=== PATIENT | female | born 1965 | race African-American/Black ===

== ENCOUNTER → 2017-03-11 09:44 | Outpatient (CLI) | payer OTHER | END | disposition home or self-care (01) | LOC: D.RT 09:44 | DX: Z02.71 Encounter for disability determination (principal) ==

== ENCOUNTER 2017-05-07 22:09 | Emergency (ER) | payer OTHER | END 2017-05-08 00:11 | disposition home or self-care (01) | LOC: D.ER 22:09 | DX: J32.9 Chronic sinusitis, unspecified (principal); F17.200 Nicotine dependence, unspecified, uncomplicated ==

== ENCOUNTER 2017-05-14 10:47 | Emergency (ER) | payer MEDICAID | END 2017-05-14 13:53 | disposition home or self-care (01) | LOC: D.ER 10:47 | DX: J32.9 Chronic sinusitis, unspecified (principal); F17.200 Nicotine dependence, unspecified, uncomplicated ==

== ENCOUNTER 2017-06-02 19:22 | Emergency (ER) | payer MEDICAID ==
[2017-06-02 20:20] LABS: BASOPHILS 0.2 % (0-2); EOSINOPHILS 1.7 % (0-7); HEMATOCRIT 40.5 % (36.0-48.0); HEMOGLOBIN 13.5 g/dL (12-16); IMMATURE GRANULOCYTES 0.2 % (0-5); LYMPHOCYTES 29.3 % (15-50); MCH 28.7 pg (26.0-34.0); MCHC 33.3 g/dL (31.0-37.0); MEAN PLATELET VOLUME 11.6 fL (7.4-10.4); MONOCYTES 4.4 % (2-11); NEUTROPHILS 64.2 % (40-80); PLATELET COUNT 289 10x3/uL (130-400); RBC 4.71 10x6/uL (4.00-5.40); RDW 14.2 % (11.5-14.5); WBC 12.8 10x3/uL (4.8-10.8)
[2017-06-02 20:22] LABS: ALBUMIN 3.1 g/dL (3.4-5.0); ALKALINE PHOSPHATASE 63 U/L (46-116); ALT (SGPT) 20 U/L (10-68); BILIRUBIN - TOTAL 0.18 mg/dL (0.2-1.3); CALC OSMOLALITY 270 mosm/kg (275-300); CALCIUM 8.5 mg/dL (8.5-10.1); CARBON DIOXIDE 27.3 mmol/L (21.0-32.0); CHLORIDE - SERUM 102 mmol/L (98-107); CREATININE - SERUM 0.8 mg/dL (0.6-1.3); GLUCOSE 100 mg/dL (74-106); POTASSIUM - SERUM 4.1 mmol/L (3.5-5.1); PROTEIN - SERUM 7.7 g/dL (6.4-8.2); SODIUM 136 mmol/L (136-145); UREA NITROGEN 11 mg/dL (7-18); eGFR NON AFRICAN AMERICAN 80 mL/min (90-120)
[2017-06-02 20:25] LABS: AMYLASE - SERUM 71 U/L (25-115); C-REACTIVE PROTEIN 0.9 mg/dL (0.0-0.9); LIPASE 106 U/L (73-393)
[2017-06-02 20:34] LABS: TROPONIN-I < 0.017 ng/mL (0.000-0.060)
[2017-06-02 20:43] LABS: APPEARANCE CLEAR (CLEAR); BILIRUBIN NEGATIVE (NEGATIVE); COLOR YELLOW (YELLOW); GLUCOSE NEGATIVE (NEGATIVE); KETONE NEGATIVE (NEGATIVE); NITRITE NEGATIVE (NEGATIVE); PROTEIN NEGATIVE (NEGATIVE); RED CELLS - URINE 0-5 /hpf (0-5); SPECIFIC GRAVITY 1.015 (1.005-1.020); UROBILINOGEN NORMAL (NORMAL); WHITE CELLS - URINE 0-5 /hpf (0-5)
[2017-06-02 20:45] LABS: BACTERIA FEW /hpf (NONE SEEN); EPITHELIAL CELLS 0-5 /hpf (0-5)
== END 2017-06-02 23:59 | disposition home or self-care (01) ==
LOC: D.ER 19:22
PROVIDERS: Family Medicine
DX: R10.9 Unspecified abdominal pain (principal); S33.5XXA Sprain of ligaments of lumbar spine, initial encounter; X58.XXXA Exposure to other specified factors, initial encounter; Y93.89 Activity, other specified; Y92.029 Unspecified place in mobile home as the place of occurrence of the external cause

== ENCOUNTER 2017-06-09 20:12 | Emergency (ER) | payer MEDICAID ==
[2017-06-09 21:13] LABS: BASOPHILS 0.2 % (0-2); EOSINOPHILS 1.9 % (0-7); HEMATOCRIT 40.2 % (36.0-48.0); HEMOGLOBIN 13.1 g/dL (12-16); IMMATURE GRANULOCYTES 0.3 % (0-5); MCH 28.3 pg (26.0-34.0); MCHC 32.6 g/dL (31.0-37.0); MCV 86.8 fL (80.0-100.0); MEAN PLATELET VOLUME 11.2 fL (7.4-10.4); MONOCYTES 5.5 % (2-11); NEUTROPHILS 61.1 % (40-80); PLATELET COUNT 270 10x3/uL (130-400); RBC 4.63 10x6/uL (4.00-5.40); RDW 14.3 % (11.5-14.5); WBC 10.8 10x3/uL (4.8-10.8)
[2017-06-09 21:33] LABS: ALKALINE PHOSPHATASE 52 U/L (46-116); ALT (SGPT) 19 U/L (10-68); BILIRUBIN - TOTAL 0.27 mg/dL (0.2-1.3); CALC OSMOLALITY 277 mosm/kg (275-300); CALCIUM 8.8 mg/dL (8.5-10.1); CARBON DIOXIDE 31.5 mmol/L (21.0-32.0); CHLORIDE - SERUM 103 mmol/L (98-107); CREATININE - SERUM 0.8 mg/dL (0.6-1.3); GLUCOSE 83 mg/dL (74-106); POTASSIUM - SERUM 3.9 mmol/L (3.5-5.1); PROTEIN - SERUM 7.3 g/dL (6.4-8.2); SODIUM 140 mmol/L (136-145); UREA NITROGEN 12 mg/dL (7-18); eGFR NON AFRICAN AMERICAN 80 mL/min (90-120)
[2017-06-09 21:45] LABS: CKMB 0.5 U/L (0.0-3.6); CREATINE KINASE 65 UL (21-215); LIPASE 87 U/L (73-393)
[2017-06-09 21:48] LABS: TROPONIN-I < 0.017 ng/mL (0.000-0.060)
== END 2017-06-10 00:35 | disposition home or self-care (01) ==
LOC: D.ER 20:12
PROVIDERS: Emergency Medicine
DX: R07.9 Chest pain, unspecified (principal); F17.200 Nicotine dependence, unspecified, uncomplicated

== ENCOUNTER 2017-06-20 13:19 | Emergency (ER) | payer MEDICAID ==
[2017-06-20 14:15] LABS: BASOPHILS 0.3 % (0-2); EOSINOPHILS 1.5 % (0-7); HEMATOCRIT 42.8 % (36.0-48.0); HEMOGLOBIN 14.2 g/dL (12-16); IMMATURE GRANULOCYTES 0.3 % (0-5); MCH 28.3 pg (26.0-34.0); MCHC 33.2 g/dL (31.0-37.0); MCV 85.4 fL (80.0-100.0); MEAN PLATELET VOLUME 11.3 fL (7.4-10.4); MONOCYTES 5.7 % (2-11); NEUTROPHILS 66.2 % (40-80); PLATELET COUNT 264 10x3/uL (130-400); RBC 5.01 10x6/uL (4.00-5.40); WBC 14.1 10x3/uL (4.8-10.8)
[2017-06-20 14:29] LABS: ALBUMIN 3.3 g/dL (3.4-5.0); ALKALINE PHOSPHATASE 63 U/L (46-116); ALT (SGPT) 26 U/L (10-68); CALC OSMOLALITY 273 mosm/kg (275-300); CARBON DIOXIDE 30.4 mmol/L (21.0-32.0); CHLORIDE - SERUM 101 mmol/L (98-107); CREATININE - SERUM 0.8 mg/dL (0.6-1.3); GLUCOSE 99 mg/dL (74-106); POTASSIUM - SERUM 4.1 mmol/L (3.5-5.1); PROTEIN - SERUM 7.6 g/dL (6.4-8.2); SODIUM 138 mmol/L (136-145); UREA NITROGEN 8 mg/dL (7-18); eGFR NON AFRICAN AMERICAN 80 mL/min (90-120)
[2017-06-20 14:49] LABS: CKMB 0.6 U/L (0.0-3.6); CREATINE KINASE 79 UL (21-215); TROPONIN-I < 0.017 ng/mL (0.000-0.060)
== END 2017-06-20 16:10 | disposition home or self-care (01) ==
LOC: D.ER 13:19
PROVIDERS: Emergency Medicine
DX: R53.1 Weakness (principal); B34.9 Viral infection, unspecified; F17.200 Nicotine dependence, unspecified, uncomplicated

== ENCOUNTER 2017-06-21 18:35 | Emergency (ER) | payer MEDICAID ==
[2017-06-21 19:54] LABS: APPEARANCE CLEAR (CLEAR); BILIRUBIN NEGATIVE (NEGATIVE); COLOR YELLOW (YELLOW); GLUCOSE NEGATIVE (NEGATIVE); KETONE NEGATIVE (NEGATIVE); NITRITE NEGATIVE (NEGATIVE); PROTEIN NEGATIVE (NEGATIVE); SPECIFIC GRAVITY 1.025 (1.005-1.020); UROBILINOGEN NORMAL (NORMAL)
[2017-06-21 19:56] LABS: BACTERIA MODERATE /hpf (NONE SEEN); EPITHELIAL CELLS 0-5 /hpf (0-5); RED CELLS - URINE 0-5 /hpf (0-5); WHITE CELLS - URINE 0-5 /hpf (0-5)
[2017-06-21 19:59] LABS: UDS - AMPHET NEGATIVE QUAL (NEGATIVE); UDS - BARB NEGATIVE QUAL (NEGATIVE); UDS - BENZO NEGATIVE QUAL (NEGATIVE); UDS - COCAINE NEGATIVE QUAL (NEGATIVE); UDS - OPIATE NEGATIVE QUAL (NEGATIVE); UDS - PCP NEGATIVE QUAL (NEGATIVE); UDS - THC NEGATIVE QUAL (NEGATIVE)
== END 2017-06-21 21:41 | disposition home or self-care (01) ==
LOC: D.ER 18:35
PROVIDERS: Physician Assistant
DX: R51 Headache (principal); R00.2 Palpitations; M54.12 Radiculopathy, cervical region

== ENCOUNTER 2017-07-07 01:35 | Emergency (ER) | payer MEDICAID ==
[2017-07-07 02:49] LABS: BASOPHILS 0.3 % (0-2); EOSINOPHILS 1.8 % (0-7); HEMATOCRIT 39.8 % (36.0-48.0); HEMOGLOBIN 13.3 g/dL (12-16); IMMATURE GRANULOCYTES 0.2 % (0-5); LYMPHOCYTES 32.3 % (15-50); MCH 28.5 pg (26.0-34.0); MCHC 33.4 g/dL (31.0-37.0); MCV 85.4 fL (80.0-100.0); MEAN PLATELET VOLUME 11.4 fL (7.4-10.4); MONOCYTES 4.7 % (2-11); NEUTROPHILS 60.7 % (40-80); PLATELET COUNT 250 10x3/uL (130-400); RBC 4.66 10x6/uL (4.00-5.40); WBC 11.8 10x3/uL (4.8-10.8)
[2017-07-07 03:05] LABS: INR 0.94 (0.85-1.17); PROTIME 12.2 SECONDS (11.6-15.0)
[2017-07-07 03:07] LABS: D-DIMER-QUANTITATIVE 0.36 ug/mLFEU (0.20-0.54)
[2017-07-07 03:09] LABS: ALBUMIN 3.2 g/dL (3.4-5.0); ALKALINE PHOSPHATASE 54 U/L (46-116); ALT (SGPT) 21 U/L (10-68); BILIRUBIN - TOTAL 0.25 mg/dL (0.2-1.3); CALC OSMOLALITY 276 mosm/kg (275-300); CALCIUM 8.6 mg/dL (8.5-10.1); CARBON DIOXIDE 33.4 mmol/L (21.0-32.0); CHLORIDE - SERUM 101 mmol/L (98-107); CREATININE - SERUM 0.9 mg/dL (0.6-1.3); GLUCOSE 99 mg/dL (74-106); POTASSIUM - SERUM 3.6 mmol/L (3.5-5.1); PROTEIN - SERUM 7.2 g/dL (6.4-8.2); SODIUM 139 mmol/L (136-145); UREA NITROGEN 11 mg/dL (7-18); eGFR NON AFRICAN AMERICAN 70 mL/min (90-120)
[2017-07-07 03:13] LABS: APPEARANCE CLEAR (CLEAR); BILIRUBIN NEGATIVE (NEGATIVE); COLOR YELLOW (YELLOW); GLUCOSE NEGATIVE (NEGATIVE); KETONE NEGATIVE (NEGATIVE); NITRITE NEGATIVE (NEGATIVE); PROTEIN NEGATIVE (NEGATIVE); UROBILINOGEN NORMAL (NORMAL)
[2017-07-07 03:14] LABS: BACTERIA FEW /hpf (NONE SEEN); EPITHELIAL CELLS 0-5 /hpf (0-5); MUCUS <1+ /lpf (NONE SEEN); WHITE CELLS - URINE 0-5 /hpf (0-5)
[2017-07-07 03:18] LABS: CKMB 0.4 U/L (0.0-3.6); CREATINE KINASE 81 UL (21-215)
[2017-07-07 03:20] LABS: TROPONIN-I < 0.017 ng/mL (0.000-0.060)
== END 2017-07-07 07:27 | disposition home or self-care (01) ==
LOC: D.ER 01:35
PROVIDERS: Family Medicine
DX: M94.0 Chondrocostal junction syndrome [Tietze] (principal)

== ENCOUNTER 2017-07-19 22:02 | Emergency (ER) | payer MEDICAID ==
[2017-07-19 23:03] LABS: APPEARANCE CLEAR (CLEAR); BILIRUBIN NEGATIVE (NEGATIVE); COLOR YELLOW (YELLOW); GLUCOSE NEGATIVE (NEGATIVE); KETONE NEGATIVE (NEGATIVE); NITRITE NEGATIVE (NEGATIVE); PROTEIN NEGATIVE (NEGATIVE); SPECIFIC GRAVITY 1.015 (1.005-1.020); UROBILINOGEN NORMAL (NORMAL)
[2017-07-19 23:05] LABS: BACTERIA MODERATE /hpf (NONE SEEN); EPITHELIAL CELLS 0-5 /hpf (0-5); RED CELLS - URINE 0-5 /hpf (0-5); WHITE CELLS - URINE 0-5 /hpf (0-5)
== END 2017-07-19 23:44 | disposition home or self-care (01) ==
LOC: D.ER 22:02
PROVIDERS: Physician Assistant Medical
DX: J01.90 Acute sinusitis, unspecified (principal); B34.9 Viral infection, unspecified

== ENCOUNTER 2017-08-04 22:09 | Emergency (ER) | payer MEDICAID ==
[2017-08-04 22:59] LABS: BASOPHILS 0.2 % (0-2); EOSINOPHILS 1.8 % (0-7); HEMATOCRIT 37.8 % (36.0-48.0); HEMOGLOBIN 12.9 g/dL (12-16); IMMATURE GRANULOCYTES 0.2 % (0-5); LYMPHOCYTES 30.3 % (15-50); MCH 28.9 pg (26.0-34.0); MCHC 34.1 g/dL (31.0-37.0); MCV 84.8 fL (80.0-100.0); MEAN PLATELET VOLUME 11.2 fL (7.4-10.4); MONOCYTES 4.6 % (2-11); NEUTROPHILS 62.9 % (40-80); PLATELET COUNT 244 10x3/uL (130-400); RBC 4.46 10x6/uL (4.00-5.40); RDW 14.2 % (11.5-14.5); WBC 11.8 10x3/uL (4.8-10.8)
[2017-08-04 23:15] LABS: ALBUMIN 3.3 g/dL (3.4-5.0); ALKALINE PHOSPHATASE 52 U/L (46-116); ALT (SGPT) 21 U/L (10-68); BILIRUBIN - TOTAL 0.19 mg/dL (0.2-1.3); CALC OSMOLALITY 279 mosm/kg (275-300); CALCIUM 9.1 mg/dL (8.5-10.1); CARBON DIOXIDE 26.1 mmol/L (21.0-32.0); CHLORIDE - SERUM 105 mmol/L (98-107); CREATININE - SERUM 0.7 mg/dL (0.6-1.3); GLUCOSE 114 mg/dL (74-106); POTASSIUM - SERUM 3.8 mmol/L (3.5-5.1); SODIUM 140 mmol/L (136-145); UREA NITROGEN 13 mg/dL (7-18); eGFR NON AFRICAN AMERICAN > 90 mL/min (90-120)
[2017-08-04 23:19] LABS: APPEARANCE HAZY (CLEAR); BILIRUBIN NEGATIVE (NEGATIVE); COLOR YELLOW (YELLOW); GLUCOSE NEGATIVE (NEGATIVE); KETONE NEGATIVE (NEGATIVE); NITRITE NEGATIVE (NEGATIVE); PROTEIN NEGATIVE (NEGATIVE); SPECIFIC GRAVITY 1.015 (1.005-1.020); UROBILINOGEN NORMAL (NORMAL)
[2017-08-04 23:22] LABS: BACTERIA FEW /hpf (NONE SEEN); EPITHELIAL CELLS 0-5 /hpf (0-5); RED CELLS - URINE 0-5 /hpf (0-5); WHITE CELLS - URINE 0-5 /hpf (0-5)
[2017-08-04 23:25] LABS: AMYLASE - SERUM 70 U/L (25-115); CKMB 0.4 U/L (0.0-3.6); CREATINE KINASE 65 UL (21-215); LIPASE 109 U/L (73-393)
== END 2017-08-05 01:38 | disposition home or self-care (01) ==
LOC: D.ER 22:09
PROVIDERS: Family Medicine
DX: R10.32 Left lower quadrant pain (principal); N83.202 Unspecified ovarian cyst, left side; F17.200 Nicotine dependence, unspecified, uncomplicated

== ENCOUNTER 2017-08-22 22:47 | Emergency (ER) | payer MEDICAID ==
[2017-08-22 23:14] LABS: BASOPHILS 0.2 % (0-2); HEMATOCRIT 40.5 % (36.0-48.0); HEMOGLOBIN 13.4 g/dL (12-16); IMMATURE GRANULOCYTES 0.3 % (0-5); LYMPHOCYTES 29.2 % (15-50); MCH 28.3 pg (26.0-34.0); MCHC 33.1 g/dL (31.0-37.0); MCV 85.6 fL (80.0-100.0); MEAN PLATELET VOLUME 11.2 fL (7.4-10.4); MONOCYTES 6.1 % (2-11); NEUTROPHILS 62.2 % (40-80); PLATELET COUNT 232 10x3/uL (130-400); RBC 4.73 10x6/uL (4.00-5.40); RDW 13.9 % (11.5-14.5); WBC 14.2 10x3/uL (4.8-10.8)
[2017-08-22 23:29] LABS: ALBUMIN 3.2 g/dL (3.4-5.0); ALKALINE PHOSPHATASE 65 U/L (46-116); ALT (SGPT) 21 U/L (10-68); BILIRUBIN - TOTAL 0.14 mg/dL (0.2-1.3); CALC OSMOLALITY 278 mosm/kg (275-300); CALCIUM 8.3 mg/dL (8.5-10.1); CHLORIDE - SERUM 101 mmol/L (98-107); GLUCOSE 140 mg/dL (74-106); POTASSIUM - SERUM 3.6 mmol/L (3.5-5.1); PROTEIN - SERUM 7.3 g/dL (6.4-8.2); SODIUM 138 mmol/L (136-145); UREA NITROGEN 15 mg/dL (7-18); eGFR NON AFRICAN AMERICAN 62 mL/min (90-120)
[2017-08-22 23:34] LABS: APPEARANCE HAZY (CLEAR); BILIRUBIN NEGATIVE (NEGATIVE); COLOR YELLOW (YELLOW); EPITHELIAL CELLS 0-5 /hpf (0-5); GLUCOSE NEGATIVE (NEGATIVE); KETONE NEGATIVE (NEGATIVE); NITRITE NEGATIVE (NEGATIVE); PROTEIN NEGATIVE (NEGATIVE); SPECIFIC GRAVITY 1.025 (1.005-1.020); UROBILINOGEN NORMAL (NORMAL); WHITE CELLS - URINE 0-5 /hpf (0-5)
[2017-08-22 23:36] LABS: CREATINE KINASE 67 UL (21-215); PRO BNP 97 pg/mL (0-125); TROPONIN-I < 0.017 ng/mL (0.000-0.060)
== END 2017-08-23 00:40 | disposition home or self-care (01) ==
LOC: D.ER 22:47
PROVIDERS: Family Medicine; Nurse Practitioner Family
DX: N39.0 Urinary tract infection, site not specified (principal); B34.9 Viral infection, unspecified; J11.1 Influenza due to unidentified influenza virus with other respiratory manifestations; R05 Cough

== ENCOUNTER 2017-09-03 13:08 | Emergency (ER) | payer MEDICAID ==
[2017-09-03 14:51] LABS: APPEARANCE CLEAR (CLEAR); BILIRUBIN NEGATIVE (NEGATIVE); COLOR YELLOW (YELLOW); GLUCOSE NEGATIVE (NEGATIVE); KETONE NEGATIVE (NEGATIVE); NITRITE NEGATIVE (NEGATIVE); PROTEIN NEGATIVE (NEGATIVE); SPECIFIC GRAVITY 1.015 (1.005-1.020); UROBILINOGEN NORMAL (NORMAL)
[2017-09-03 14:52] LABS: RED CELLS - URINE 0-5 /hpf (0-5); WHITE CELLS - URINE 0-5 /hpf (0-5)
[2017-12-07 22:53] VITALS: BMI 29.6
== END 2017-09-03 17:15 | disposition home or self-care (01) ==
LOC: D.ER 13:08
PROVIDERS: Nurse Practitioner Family
DX: J32.9 Chronic sinusitis, unspecified (principal); N39.0 Urinary tract infection, site not specified; M79.642 Pain in left hand; M79.641 Pain in right hand; M79.1 Myalgia; R51 Headache; R53.83 Other fatigue; R05 Cough

== ENCOUNTER 2017-09-05 18:26 | Observation (INO) | payer MEDICAID ==
[~2017-09-05] VITALS: Ht 162.6 cm; Wt 84.2 kg
[2017-09-05 19:17] LABS: BASOPHILS 0.2 % (0-2); EOSINOPHILS 1.8 % (0-7); HEMATOCRIT 39.5 % (36.0-48.0); IMMATURE GRANULOCYTES 0.2 % (0-5); LYMPHOCYTES 30.1 % (15-50); MCH 28.4 pg (26.0-34.0); MCHC 32.9 g/dL (31.0-37.0); MCV 86.4 fL (80.0-100.0); MEAN PLATELET VOLUME 11.1 fL (7.4-10.4); MONOCYTES 5.2 % (2-11); NEUTROPHILS 62.5 % (40-80); PLATELET COUNT 264 10x3/uL (130-400); RBC 4.57 10x6/uL (4.00-5.40); RDW 13.6 % (11.5-14.5); WBC 10.1 10x3/uL (4.8-10.8)
[2017-09-05 19:43] LABS: ALBUMIN 3.2 g/dL (3.4-5.0); ALKALINE PHOSPHATASE 51 U/L (46-116); ALT (SGPT) 19 U/L (10-68); BILIRUBIN - TOTAL 0.57 mg/dL (0.2-1.3); CALC OSMOLALITY 274 mosm/kg (275-300); CALCIUM 8.5 mg/dL (8.5-10.1); CARBON DIOXIDE 28.2 mmol/L (21.0-32.0); CHLORIDE - SERUM 102 mmol/L (98-107); CREATININE - SERUM 0.9 mg/dL (0.6-1.3); GLUCOSE 97 mg/dL (74-106); POTASSIUM - SERUM 3.3 mmol/L (3.5-5.1); PROTEIN - SERUM 7.4 g/dL (6.4-8.2); SODIUM 138 mmol/L (136-145); UREA NITROGEN 11 mg/dL (7-18); eGFR NON AFRICAN AMERICAN 70 mL/min (90-120)
[2017-09-05 19:55] LABS: CKMB 0.5 U/L (0.0-3.6); CREATINE KINASE 91 UL (21-215)
[2017-09-05 19:56] LABS: TROPONIN-I < 0.017 ng/mL (0.000-0.060)
[2017-09-05 20:42] LABS: UDS - AMPHET NEGATIVE QUAL (NEGATIVE); UDS - BARB NEGATIVE QUAL (NEGATIVE); UDS - BENZO NEGATIVE QUAL (NEGATIVE); UDS - COCAINE NEGATIVE QUAL (NEGATIVE); UDS - OPIATE POSITIVE QUAL (NEGATIVE); UDS - PCP NEGATIVE QUAL (NEGATIVE); UDS - THC NEGATIVE QUAL (NEGATIVE)
[2017-09-05 20:52] LABS: APPEARANCE HAZY (CLEAR); BACTERIA FEW /hpf (NONE SEEN); BILIRUBIN NEGATIVE (NEGATIVE); COLOR YELLOW (YELLOW); EPITHELIAL CELLS 0-5 /hpf (0-5); GLUCOSE NEGATIVE (NEGATIVE); KETONE SMALL mg/dL (NEGATIVE); NITRITE NEGATIVE (NEGATIVE); PROTEIN TRACE mg/dL (NEGATIVE); RED CELLS - URINE 0-5 /hpf (0-5); UROBILINOGEN NORMAL (NORMAL)
[2017-09-06] MEDS ORDERED: ATIVAN1 MG PO (01:59)
[2017-09-06] MEDS ORDERED: CLARITIN 10 MG10 MG PO (02:02)
[2017-09-06] MEDS ORDERED: ZANTAC150 MG PO (02:02)
[2017-09-06] MEDS ORDERED: MEDROL DOSE PACK4 MG PO (02:07)
[2017-09-06] MEDS ORDERED: PROAIR HFA8.5 GM INH (02:11)
[2017-09-06] MEDS ORDERED: ALBUTEROL2.5 MG/3 M INH (02:12)
[2017-09-06] MEDS ORDERED: IBUPROFEN400 MG PO (02:17)
[2017-09-06 03:31] VITALS: BP 138/87; BMI 31.9
[2017-09-06 06:03] LABS: BASOPHILS 0.2 % (0-2); EOSINOPHILS 2.3 % (0-7); HEMATOCRIT 36.7 % (36.0-48.0); IMMATURE GRANULOCYTES 0.1 % (0-5); LYMPHOCYTES 31.1 % (15-50); MCHC 32.7 g/dL (31.0-37.0); MCV 85.5 fL (80.0-100.0); MEAN PLATELET VOLUME 11.4 fL (7.4-10.4); MONOCYTES 7.1 % (2-11); NEUTROPHILS 59.2 % (40-80); PLATELET COUNT 231 10x3/uL (130-400); RBC 4.29 10x6/uL (4.00-5.40); RDW 13.6 % (11.5-14.5); WBC 9.6 10x3/uL (4.8-10.8)
[2017-09-06 06:09] VITALS: BP 138/87
[2017-09-06 06:14] LABS: INR 1.02 (0.85-1.17)
[2017-09-06 06:18] LABS: CALC OSMOLALITY 272 mosm/kg (275-300); CALCIUM 8.1 mg/dL (8.5-10.1); CARBON DIOXIDE 25.4 mmol/L (21.0-32.0); CHLORIDE - SERUM 106 mmol/L (98-107); CREATININE - SERUM 0.8 mg/dL (0.6-1.3); GLUCOSE 101 mg/dL (74-106); POTASSIUM - SERUM 3.7 mmol/L (3.5-5.1); SODIUM 137 mmol/L (136-145); UREA NITROGEN 10 mg/dL (7-18); eGFR NON AFRICAN AMERICAN 80 mL/min (90-120)
[2017-09-06 08:26] VITALS: BP 118/60
[2017-09-06 12:01] LABS: THYROID STIMULATING HORMONE 0.86 uIU/mL (0.36-3.74)
[2017-09-06 13:10] LABS: CKMB 0.6 U/L (0.0-3.6); CREATINE KINASE 86 UL (21-215); TROPONIN-I < 0.017 ng/mL (0.000-0.060)
[2017-09-06 13:42] VITALS: BP 129/92
[2017-09-06 13:43] VITALS: Ht 162.6 cm; Wt 84.2 kg
[2017-09-06 18:55] LABS: CKMB 0.6 U/L (0.0-3.6); CREATINE KINASE 87 UL (21-215)
[2017-09-06 18:56] LABS: TROPONIN-I < 0.017 ng/mL (0.000-0.060)
[2017-09-06 23:40] VITALS: BP 150/87
[2017-09-07 00:39] LABS: CKMB 1.1 U/L (0.0-3.6); CREATINE KINASE 108 UL (21-215)
[2017-09-07 00:40] LABS: TROPONIN-I < 0.017 ng/mL (0.000-0.060)
[2017-09-07 05:23] LABS: BASOPHILS 0.1 % (0-2); EOSINOPHILS 0 % (0-7); HEMATOCRIT 36.2 % (36.0-48.0); IMMATURE GRANULOCYTES 0.2 % (0-5); LYMPHOCYTES 13.4 % (15-50); MCH 28.2 pg (26.0-34.0); MCHC 33.1 g/dL (31.0-37.0); MCV 85.2 fL (80.0-100.0); MEAN PLATELET VOLUME 10.8 fL (7.4-10.4); MONOCYTES 2.6 % (2-11); NEUTROPHILS 83.7 % (40-80); PLATELET COUNT 243 10x3/uL (130-400); RBC 4.25 10x6/uL (4.00-5.40); RDW 13.7 % (11.5-14.5); WBC 10.9 10x3/uL (4.8-10.8)
[2017-09-07 05:46] LABS: ALBUMIN 2.7 g/dL (3.4-5.0); ALKALINE PHOSPHATASE 40 U/L (46-116); ALT (SGPT) 17 U/L (10-68); CALC OSMOLALITY 276 mosm/kg (275-300); CALCIUM 7.9 mg/dL (8.5-10.1); CHLORIDE - SERUM 105 mmol/L (98-107); CREATININE - SERUM 0.7 mg/dL (0.6-1.3); GLUCOSE 115 mg/dL (74-106); POTASSIUM - SERUM 4.2 mmol/L (3.5-5.1); PROTEIN - SERUM 6.7 g/dL (6.4-8.2); SODIUM 139 mmol/L (136-145); UREA NITROGEN 8 mg/dL (7-18); eGFR NON AFRICAN AMERICAN > 90 mL/min (90-120)
[2017-09-07 06:13] VITALS: BP 135/86
[2017-09-07 23:07] VITALS: BP 184/80
[2017-09-08 05:23] VITALS: BP 174/84
[2017-09-08 05:41] LABS: BASOPHILS 0.3 % (0-2); EOSINOPHILS 0.8 % (0-7); HEMATOCRIT 36.8 % (36.0-48.0); IMMATURE GRANULOCYTES 0.2 % (0-5); LYMPHOCYTES 35.9 % (15-50); MCH 28.1 pg (26.0-34.0); MCHC 32.6 g/dL (31.0-37.0); MCV 86.2 fL (80.0-100.0); MONOCYTES 5.6 % (2-11); NEUTROPHILS 57.2 % (40-80); PLATELET COUNT 258 10x3/uL (130-400); RBC 4.27 10x6/uL (4.00-5.40); RDW 13.9 % (11.5-14.5); WBC 10.6 10x3/uL (4.8-10.8)
[2017-09-08 06:02] LABS: ALBUMIN 2.7 g/dL (3.4-5.0); ALKALINE PHOSPHATASE 42 U/L (46-116); ALT (SGPT) 17 U/L (10-68); BILIRUBIN - TOTAL 0.48 mg/dL (0.2-1.3); CALC OSMOLALITY 280 mosm/kg (275-300); CALCIUM 8.3 mg/dL (8.5-10.1); CARBON DIOXIDE 25.2 mmol/L (21.0-32.0); CHLORIDE - SERUM 107 mmol/L (98-107); CREATININE - SERUM 0.8 mg/dL (0.6-1.3); GLUCOSE 110 mg/dL (74-106); POTASSIUM - SERUM 3.6 mmol/L (3.5-5.1); PROTEIN - SERUM 6.4 g/dL (6.4-8.2); SODIUM 141 mmol/L (136-145); UREA NITROGEN 10 mg/dL (7-18); eGFR NON AFRICAN AMERICAN 80 mL/min (90-120)
[2017-09-08 08:05] VITALS: BP 145/87
[2017-09-08] MEDS ORDERED: FLUTICASONE PRO16 GM NASAL (12:24)
[2017-09-08] MEDS ORDERED: PROTONIX40 MG PO (12:26)
[2017-09-08] MEDS ORDERED: NYSTATIN ORAL SU5 ML PO (12:27)
[2017-09-08] MEDS ORDERED: LEVAQUIN750 MG PO (12:28)
[2017-09-08 12:35] VITALS: BP 149/86
== END 2017-09-08 14:22 | disposition home or self-care (01) ==
LOC: OBSVTIME → D.ER 18:26 → D.MS 23:54 → OBSVTIME 23:54 → D.EDHOLD 23:54 → D.ER 23:54 → D.MS 09-08 14:22
PROVIDERS: Family Medicine; Internal Medicine Gastroenterology
DX: R13.14 Dysphagia, pharyngoesophageal phase (principal); R63.4 Abnormal weight loss; K21.9 Gastro-esophageal reflux disease without esophagitis; F41.9 Anxiety disorder, unspecified; G47.33 Obstructive sleep apnea (adult) (pediatric); K29.70 Gastritis, unspecified, without bleeding

== ENCOUNTER 2017-09-08 20:17 | Emergency (ER) | payer MEDICAID ==
[2017-09-06 13:43] VITALS: BMI 31.8
[~2017-09-08 20:17] MED LIST: ALBUTEROL2.5 MG/3 M INH; ATIVAN1 MG PO; CLARITIN 10 MG10 MG PO; FLUTICASONE PRO16 GM NASAL; IBUPROFEN400 MG PO; LEVAQUIN750 MG PO; MEDROL DOSE PACK4 MG PO; NYSTATIN ORAL SU5 ML PO; PROAIR HFA8.5 GM INH; PROTONIX40 MG PO; ZANTAC150 MG PO
== END 2017-09-08 21:24 | disposition home or self-care (01) ==
LOC: D.ER 20:17
DX: J01.90 Acute sinusitis, unspecified (principal); J06.9 Acute upper respiratory infection, unspecified; F17.200 Nicotine dependence, unspecified, uncomplicated

== ENCOUNTER 2017-09-09 17:44 | Emergency (ER) | payer MEDICAID ==
[2017-09-06 13:43] VITALS: BMI 31.8
== END 2017-09-09 21:12 | disposition home or self-care (01) ==
LOC: D.ER 17:44
DX: R13.10 Dysphagia, unspecified (principal)

== ENCOUNTER 2017-09-17 17:38 | Emergency (ER) | payer MEDICAID ==
[2017-09-06 13:43] VITALS: BMI 31.8
[2017-09-17 21:09] LABS: APPEARANCE CLEAR (CLEAR); BILIRUBIN NEGATIVE (NEGATIVE); COLOR YELLOW (YELLOW); GLUCOSE NEGATIVE (NEGATIVE); KETONE SMALL mg/dL (NEGATIVE); NITRITE NEGATIVE (NEGATIVE); PROTEIN NEGATIVE (NEGATIVE); UROBILINOGEN NORMAL (NORMAL)
[2017-09-17 21:10] LABS: BACTERIA FEW /hpf (NONE SEEN); RED CELLS - URINE OCC /hpf (0-5); WHITE CELLS - URINE OCC /hpf (0-5)
[2017-09-17 21:33] LABS: BASOPHILS 0.4 % (0-2); EOSINOPHILS 1.4 % (0-7); HEMATOCRIT 38.3 % (36.0-48.0); HEMOGLOBIN 12.9 g/dL (12-16); IMMATURE GRANULOCYTES 0.1 % (0-5); LYMPHOCYTES 29.7 % (15-50); MCH 28.4 pg (26.0-34.0); MCHC 33.7 g/dL (31.0-37.0); MCV 84.4 fL (80.0-100.0); MEAN PLATELET VOLUME 11.6 fL (7.4-10.4); MONOCYTES 4.3 % (2-11); NEUTROPHILS 64.1 % (40-80); PLATELET COUNT 246 10x3/uL (130-400); RBC 4.54 10x6/uL (4.00-5.40); RDW 13.5 % (11.5-14.5); WBC 10.5 10x3/uL (4.8-10.8)
[2017-09-17 21:49] LABS: ALBUMIN 3.1 g/dL (3.4-5.0); ALKALINE PHOSPHATASE 51 U/L (46-116); ALT (SGPT) 18 U/L (10-68); BILIRUBIN - TOTAL 0.58 mg/dL (0.2-1.3); CALC OSMOLALITY 273 mosm/kg (275-300); CALCIUM 8.8 mg/dL (8.5-10.1); CARBON DIOXIDE 29.4 mmol/L (21.0-32.0); CHLORIDE - SERUM 103 mmol/L (98-107); CREATININE - SERUM 0.7 mg/dL (0.6-1.3); GLUCOSE 94 mg/dL (74-106); POTASSIUM - SERUM 3.4 mmol/L (3.5-5.1); SODIUM 138 mmol/L (136-145); UREA NITROGEN 7 mg/dL (7-18); eGFR NON AFRICAN AMERICAN > 90 mL/min (90-120)
== END 2017-09-18 00:01 | disposition home or self-care (01) ==
LOC: D.ER 17:38
PROVIDERS: Physician Assistant Medical
DX: R51 Headache (principal); I10 Essential (primary) hypertension; F17.200 Nicotine dependence, unspecified, uncomplicated

== ENCOUNTER → 2017-09-23 11:16 | Outpatient (CLI) | payer MEDICAID ==
[2017-09-06 13:43] VITALS: BMI 31.8
[~2017-09-23 11:16] MED LIST changes: +ASCORBIC ACID500 MG; +FEXOFENADINE H180 MG PO; +NASACORT10.8 ML NASAL; +VITAMIN D31000 UNIT PO; +ZITHROMAX TRI-500 MG PO
== END | disposition home or self-care (01) ==
LOC: D.OPS 10:30
DX: K22.2 Esophageal obstruction (principal)

== ENCOUNTER 2017-09-23 14:09 | Emergency (ER) | payer MEDICAID ==
[2017-09-06 13:43] VITALS: BMI 31.8
[~2017-09-23 14:09] MED LIST changes: -ASCORBIC ACID500 MG; -FEXOFENADINE H180 MG PO; -NASACORT10.8 ML NASAL; -VITAMIN D31000 UNIT PO; -ZITHROMAX TRI-500 MG PO
== END 2017-09-23 20:00 | disposition home or self-care (01) ==
LOC: D.ER 14:09
DX: R13.10 Dysphagia, unspecified (principal); J39.2 Other diseases of pharynx; J35.2 Hypertrophy of adenoids; I10 Essential (primary) hypertension

== ENCOUNTER 2017-09-26 15:37 | Emergency (ER) | payer MEDICAID ==
[2017-09-06 13:43] VITALS: BMI 31.8
[2017-09-26 16:53] LABS: BASOPHILS 0.2 % (0-2); EOSINOPHILS 1.9 % (0-7); IMMATURE GRANULOCYTES 0.2 % (0-5); LYMPHOCYTES 24.9 % (15-50); MCH 28.5 pg (26.0-34.0); MCHC 33.3 g/dL (31.0-37.0); MCV 85.4 fL (80.0-100.0); MEAN PLATELET VOLUME 11.6 fL (7.4-10.4); MONOCYTES 6.6 % (2-11); NEUTROPHILS 66.2 % (40-80); PLATELET COUNT 287 10x3/uL (130-400); RBC 4.92 10x6/uL (4.00-5.40); RDW 13.4 % (11.5-14.5); WBC 12.3 10x3/uL (4.8-10.8)
[2017-09-26 17:09] LABS: ALBUMIN 3.2 g/dL (3.4-5.0); ALKALINE PHOSPHATASE 49 U/L (46-116); ALT (SGPT) 15 U/L (10-68); BILIRUBIN - TOTAL 0.27 mg/dL (0.2-1.3); CALC OSMOLALITY 277 mosm/kg (275-300); CALCIUM 8.8 mg/dL (8.5-10.1); CARBON DIOXIDE 30.4 mmol/L (21.0-32.0); CHLORIDE - SERUM 103 mmol/L (98-107); CREATININE - SERUM 0.9 mg/dL (0.6-1.3); GLUCOSE 92 mg/dL (74-106); PROTEIN - SERUM 7.5 g/dL (6.4-8.2); SODIUM 140 mmol/L (136-145); UREA NITROGEN 10 mg/dL (7-18); eGFR NON AFRICAN AMERICAN 70 mL/min (90-120)
[2017-09-26 17:26] LABS: AMYLASE - SERUM 57 U/L (25-115); CKMB 0.4 U/L (0.0-3.6); CREATINE KINASE 63 UL (21-215); LIPASE 98 U/L (73-393)
[2017-09-26 17:30] LABS: TROPONIN-I < 0.017 ng/mL (0.000-0.060)
== END 2017-09-26 19:09 | disposition home or self-care (01) ==
LOC: D.ER 15:37
PROVIDERS: Family Medicine
DX: K21.9 Gastro-esophageal reflux disease without esophagitis (principal); R07.89 Other chest pain; R00.1 Bradycardia, unspecified

== ENCOUNTER 2017-10-12 22:53 | Emergency (ER) | payer MEDICAID ==
[2017-09-06 13:43] VITALS: BMI 31.8
[2017-10-13 00:19] LABS: APPEARANCE CLEAR (CLEAR); BILIRUBIN NEGATIVE (NEGATIVE); COLOR YELLOW (YELLOW); GLUCOSE NEGATIVE (NEGATIVE); KETONE NEGATIVE (NEGATIVE); NITRITE NEGATIVE (NEGATIVE); PROTEIN NEGATIVE (NEGATIVE); UROBILINOGEN NORMAL (NORMAL)
[2017-10-13 00:20] LABS: BACTERIA FEW /hpf (NONE SEEN); EPITHELIAL CELLS 0-5 /hpf (0-5); WHITE CELLS - URINE 0-5 /hpf (0-5)
== END 2017-10-13 03:18 | disposition home or self-care (01) ==
LOC: D.ER 22:53
PROVIDERS: Family Medicine
DX: R11.10 Vomiting, unspecified (principal); K22.2 Esophageal obstruction

== ENCOUNTER 2017-10-24 19:17 | Emergency (ER) | payer MEDICAID ==
[2017-09-06 13:43] VITALS: BMI 31.8
[2017-10-24 20:54] LABS: BASOPHILS 0.2 % (0-2); EOSINOPHILS 1.9 % (0-7); HEMATOCRIT 37.1 % (36.0-48.0); HEMOGLOBIN 12.3 g/dL (12-16); IMMATURE GRANULOCYTES 0.2 % (0-5); LYMPHOCYTES 33.7 % (15-50); MCH 28.6 pg (26.0-34.0); MCHC 33.2 g/dL (31.0-37.0); MCV 86.3 fL (80.0-100.0); MONOCYTES 5.7 % (2-11); NEUTROPHILS 58.3 % (40-80); PLATELET COUNT 235 10x3/uL (130-400); RDW 13.8 % (11.5-14.5); WBC 9.8 10x3/uL (4.8-10.8)
[2017-10-24 21:06] LABS: APPEARANCE CLEAR (CLEAR); BILIRUBIN NEGATIVE (NEGATIVE); COLOR DK YELLOW (YELLOW); GLUCOSE NEGATIVE (NEGATIVE); KETONE NEGATIVE (NEGATIVE); NITRITE NEGATIVE (NEGATIVE); PROTEIN NEGATIVE (NEGATIVE); SPECIFIC GRAVITY 1.015 (1.005-1.020); UROBILINOGEN NORMAL (NORMAL)
[2017-10-24 21:07] LABS: ALBUMIN 2.9 g/dL (3.4-5.0); ALKALINE PHOSPHATASE 46 U/L (46-116); ALT (SGPT) 16 U/L (10-68); BILIRUBIN - TOTAL 0.24 mg/dL (0.2-1.3); CALC OSMOLALITY 274 mosm/kg (275-300); CALCIUM 8.2 mg/dL (8.5-10.1); CARBON DIOXIDE 26.4 mmol/L (21.0-32.0); CHLORIDE - SERUM 104 mmol/L (98-107); CREATININE - SERUM 0.8 mg/dL (0.6-1.3); GLUCOSE 91 mg/dL (74-106); POTASSIUM - SERUM 3.8 mmol/L (3.5-5.1); PROTEIN - SERUM 6.7 g/dL (6.4-8.2); SODIUM 138 mmol/L (136-145); UREA NITROGEN 11 mg/dL (7-18); eGFR NON AFRICAN AMERICAN 80 mL/min (90-120)
[2017-10-24 21:09] LABS: BACTERIA FEW /hpf (NONE SEEN); EPITHELIAL CELLS 0-5 /hpf (0-5); RED CELLS - URINE 0-5 /hpf (0-5); WHITE CELLS - URINE RARE /hpf (0-5)
== END 2017-10-24 22:03 | disposition home or self-care (01) ==
LOC: D.ER 19:17
PROVIDERS: Nurse Practitioner Family
DX: I10 Essential (primary) hypertension (principal); J01.90 Acute sinusitis, unspecified; F17.200 Nicotine dependence, unspecified, uncomplicated; K21.9 Gastro-esophageal reflux disease without esophagitis

== ENCOUNTER 2017-12-07 22:48 | Emergency (ER) | payer MEDICAID ==
[~2017-12-07] VITALS: Ht 162.6 cm; Wt 78.2 kg
[2017-12-07 22:53] VITALS: Ht 162.6 cm; Wt 78.2 kg
[2017-12-07] MEDS ORDERED: NASACORT10.8 ML NASAL (23:10)
[2017-12-07] MEDS ORDERED: ASCORBIC ACID500 MG (23:11)
[2017-12-07] MEDS ORDERED: VITAMIN D31000 UNIT PO (23:11)
[2017-12-07] MEDS ORDERED: ZITHROMAX TRI-500 MG PO (23:51)
[2017-12-07] MEDS ORDERED: FEXOFENADINE H180 MG PO (23:51)
[2017-12-08 00:07] VITALS: BP 146/87
== END 2017-12-08 00:08 | disposition home or self-care (01) ==
LOC: D.ER 22:48
DX: J01.90 Acute sinusitis, unspecified (principal); H92.03 Otalgia, bilateral; F17.200 Nicotine dependence, unspecified, uncomplicated

== ENCOUNTER 2017-12-11 18:21 | Emergency (ER) | payer MEDICAID ==
[~2017-12-11] VITALS: Ht 162.6 cm; Wt 79.1 kg
[~2017-12-11 18:21] MED LIST changes: +ASCORBIC ACID500 MG; +FEXOFENADINE H180 MG PO; +NASACORT10.8 ML NASAL; +VITAMIN D31000 UNIT PO; +ZITHROMAX TRI-500 MG PO
[2017-12-11 18:29] VITALS: Ht 162.6 cm; Wt 79.1 kg
[2017-12-11 19:41] LABS: APPEARANCE CLEAR (CLEAR); BILIRUBIN NEGATIVE (NEGATIVE); COLOR DK YELLOW (YELLOW); GLUCOSE NEGATIVE (NEGATIVE); KETONE NEGATIVE (NEGATIVE); NITRITE NEGATIVE (NEGATIVE); PH 5.5 (5.0-6.0); PROTEIN NEGATIVE (NEGATIVE); UROBILINOGEN NORMAL (NORMAL)
[2017-12-11 19:42] LABS: EPITHELIAL CELLS 0-5 /hpf (0-5); RED CELLS - URINE 0-5 /hpf (0-5); WHITE CELLS - URINE 0-5 /hpf (0-5)
[2017-12-11 19:43] LABS: BACTERIA FEW /hpf (NONE SEEN); MUCUS <1+ /lpf (NONE SEEN)
[2017-12-11 20:14] LABS: BASOPHILS 0.3 % (0-2); EOSINOPHILS 2.3 % (0-7); HEMATOCRIT 38.8 % (36.0-48.0); HEMOGLOBIN 12.9 g/dL (12-16); IMMATURE GRANULOCYTES 0.3 % (0-5); LYMPHOCYTES 33.2 % (15-50); MCH 28.1 pg (26.0-34.0); MCHC 33.2 g/dL (31.0-37.0); MCV 84.5 fL (80.0-100.0); MEAN PLATELET VOLUME 10.8 fL (7.4-10.4); MONOCYTES 4.6 % (2-11); NEUTROPHILS 59.3 % (40-80); PLATELET COUNT 232 10x3/uL (130-400); RBC 4.59 10x6/uL (4.00-5.40); RDW 14.2 % (11.5-14.5); WBC 9.9 10x3/uL (4.8-10.8)
[2017-12-11 20:28] LABS: ALBUMIN 2.8 g/dL (3.4-5.0); ALKALINE PHOSPHATASE 46 U/L (46-116); ALT (SGPT) 21 U/L (10-68); BILIRUBIN - TOTAL 0.37 mg/dL (0.2-1.3); CALC OSMOLALITY 279 mosm/kg (275-300); CALCIUM 8.9 mg/dL (8.5-10.1); CARBON DIOXIDE 30.4 mmol/L (21.0-32.0); CHLORIDE - SERUM 106 mmol/L (98-107); CREATININE - SERUM 0.8 mg/dL (0.6-1.3); GLUCOSE 98 mg/dL (74-106); POTASSIUM - SERUM 3.6 mmol/L (3.5-5.1); PROTEIN - SERUM 6.8 g/dL (6.4-8.2); SODIUM 141 mmol/L (136-145); UREA NITROGEN 10 mg/dL (7-18); eGFR NON AFRICAN AMERICAN 80 mL/min (90-120)
[2017-12-11 20:37] LABS: C-REACTIVE PROTEIN 0.5 mg/dL (0.0-0.9); THYROID STIMULATING HORMONE 0.36 uIU/mL (0.36-3.74)
[2017-12-11 20:43] LABS: APTT 28.9 SECONDS (22.8-39.4); INR 0.96 (0.85-1.17); PROTIME 12.4 SECONDS (11.6-15.0)
[2017-12-11 20:45] LABS: TROPONIN-I < 0.017 ng/mL (0.000-0.060)
[2017-12-12 00:28] VITALS: BP 136/77
== END 2017-12-12 00:42 ==
LOC: D.ER 18:21
PROVIDERS: Family Medicine
DX: R55 Syncope and collapse (principal); R00.2 Palpitations; Z86.73 Personal history of transient ischemic attack (TIA), and cerebral infarction without residual deficits; F17.200 Nicotine dependence, unspecified, uncomplicated

== ENCOUNTER 2018-01-17 09:34 | Day surgery (SDC) | payer MEDICAID ==
[~2018-01-17] VITALS: Ht 162.6 cm; Wt 77.1 kg
--- NOTE | ~2018-01-17 | HP ---
PATIENT: VAMSI SIDDIQUI MEDICAL RECORD: [id number] ACCOUNT: [id number] LOCATION:[facility] : 69 ADMISSION DATE: 01/17/18 HISTORY AND PHYSICAL EXAMINATION PREOPERATIVE HISTORY AND PHYSICAL HISTORY OF PRESENT ILLNESS: Vamsi is 52 years old. She has been having problems with nasal obstruction. She uses CPAP and has an issue with using her CPAP because of her nasal obstruction. She has been refractory to medical management. She is being admitted for septoplasty and bilateral inferior turbinate reduction. PAST MEDICAL HISTORY: Includes reflux. PAST SURGICAL HISTORY: Includes repair of a hand fracture and esophagoscopy. CURRENT MEDICATIONS: Vitamins. ALLERGIES: SULFA. PHYSICAL EXAMINATION: GENERAL: She is healthy-appearing, developmentally normal. FACE: Normal, symmetric, no lesions. EYES: Sclerae and conjunctivae are normal. ORAL CAVITY AND OROPHARYNX: Tongue protrudes in midline. Palate is normal. NOSE: She has large inferior turbinates and severe septal deviation. NECK: No masses, no adenopathy. CHEST: Clear. CARDIOVASCULAR: Regular rate and rhythm, no murmur. EXTREMITIES: No clubbing, cyanosis or edema. IMPRESSION: Nasal obstruction, septal deviation, and turbinate hypertrophy. PLAN: Septoplasty and bilateral inferior turbinate reduction. TRANSINT:[id number] Voice Confirmation ID: [id number] DOCUMENT ID: [id number] JOSIANE BETANCUR MD at 1111 CC: [id number] DICTATION DATE: 01/04/18 1335 LEAD PHARMACY TECHNICIAN: 01/04/18 1439 [id number] [place] [address]
--- NOTE | ~2018-01-17 | OP ---
PATIENT NAME: VAMSI SIDDIQUI MEDICAL RECORD: [id number] :69 [facility] AD[facility] DATE: SURGEON: JOSIANE BACA MD DATE OF OPERATION: 01/17/2018 PREOPERATIVE DIAGNOSES: Nasal obstruction, septal deviation, turbinate hypertrophy, sleep apnea. POSTOPERATIVE DIAGNOSES: Nasal obstruction, septal deviation, turbinate hypertrophy, sleep apnea. PROCEDURES: Septoplasty, bilateral inferior turbinate reduction. SURGEON: Josiane Baca MD ANESTHESIA: General orotracheal. BLOOD LOSS: 2 cc. SPECIMENS: Portion of the inferior turbinates. COMPLICATIONS: None. NASAL PACKING: Silver splints bilaterally. PROCEDURE NOTE: She was brought to the operating room and placed in supine position, sedated and intubated by anesthesia. The eyes were taped, head drape was applied. She was positioned, prepped and draped in the usual fashion. Her nose had been decongested with Afrin preoperatively. Both sides of the nose were examined using a headlight and nasal speculum. The septum and inferior turbinates were injected with a total of 1.5 cc of 1% lidocaine on a long 27-gauge needle. The Afrin pledgets were placed bilaterally. After waiting for decongestion, all the Afrin pledgets were removed from both sides of the nose. A right-sided Pierpoint incision was made. Ipsilateral mucoperichondrial flap was elevated. Bony cartilaginous junction was disarticulated. A bony spur was isolated and removed from the right inferior septum with a chisel. Relaxing incisions were made in the cartilage allowing the septum to fall back to the midline. With that accomplished, both inferior turbinates were medialized with a freer. A Gruenwald was used to remove the inferior redundant portion of the bony turbinates and suction cautery on a setting of 25 was used to stop any bleeding from the inferior turbinates. They were both outfractured with a [place] elevator again examined to make sure there was no bleeding. The Pierpoint incision was closed with interrupted 4-0 chromic. Silver splints were placed bilaterally and sutured to the anterior membranous septum with a 2-0 Prolene on a Willian needle. With the field clean and dry, she was awakened, extubated, and transported to recovery in good condition. No complications. TRANSINT:[id number] Voice Confirmation ID: [id number] DOCUMENT ID: [id number] OPERATIVE REPORT [id number] VAMSI SIDDIQUI ERIC MD at 1711 CC: [id number] DICTATION DATE: 01/17/18 1519 PAYER SPECIALIST: 01/17/[address] [facility] 01/17/18 [place] [place] [id number]
[2018-01-17 10:01] LABS: HEMATOCRIT 36.9 % (36.0-48.0); HEMOGLOBIN 12.4 g/dL (12-16); MCH 28.3 pg (26.0-34.0); MCHC 33.6 g/dL (31.0-37.0); MCV 84.2 fL (80.0-100.0); MEAN PLATELET VOLUME 11.1 fL (7.4-10.4); RBC 4.38 10x6/uL (4.00-5.40); RDW 14.1 % (11.5-14.5); WBC 8.6 10x3/uL (4.8-10.8)
[2018-01-17 11:45] VITALS: BP 126/79; Ht 162.6 cm; Wt 77.1 kg
[2018-01-17 14:18] LABS: HCG URINE NEGATIVE (NEGATIVE)
[2018-01-17] MEDS ORDERED: HYDROCODON-ACE1 EAC7 PO (17:45)
[2018-01-18] MEDS ORDERED: AMOXICILLI400 MG/5 M PO (03:39)
== END 2018-01-17 19:10 | disposition home or self-care (01) ==
LOC: D.OPS 09:34 → D.PAN 13:00 → D.OPS 13:00
PROVIDERS: Anesthesiology; Otolaryngology
DX: J34.2 Deviated nasal septum (principal); J34.89 Other specified disorders of nose and nasal sinuses; J34.3 Hypertrophy of nasal turbinates; Z01.812 Encounter for preprocedural laboratory examination

== ENCOUNTER 2018-01-18 01:39 | Emergency (ER) | payer MEDICAID ==
[~2018-01-18] VITALS: Ht 162.6 cm; Wt 77.3 kg
[~2018-01-18 01:39] MED LIST changes: +HYDROCODON-ACE1 EAC7 PO
[2018-01-18 02:00] VITALS: Ht 162.6 cm; Wt 77.3 kg
[2018-01-18 03:02] LABS: BASOPHILS 0.1 % (0-2); EOSINOPHILS 0 % (0-7); HEMOGLOBIN 12.3 g/dL (12-16); IMMATURE GRANULOCYTES 0.2 % (0-5); LYMPHOCYTES 7.7 % (15-50); MCHC 33.2 g/dL (31.0-37.0); MCV 84.1 fL (80.0-100.0); MEAN PLATELET VOLUME 11.3 fL (7.4-10.4); MONOCYTES 0.9 % (2-11); NEUTROPHILS 91.1 % (40-80); PLATELET COUNT 217 10x3/uL (130-400); RDW 13.9 % (11.5-14.5)
[2018-01-18 03:04] LABS: WBC 12.7 10x3/uL (4.8-10.8)
[2018-01-18] MEDS ORDERED: AMOXICILLI400 MG/5 M PO (03:39)
[2018-01-18 03:43] LABS: ALBUMIN 2.9 g/dL (3.4-5.0); ALKALINE PHOSPHATASE 52 U/L (46-116); ALT (SGPT) 18 U/L (10-68); BILIRUBIN - TOTAL 0.39 mg/dL (0.2-1.3); CALC OSMOLALITY 274 mosm/kg (275-300); CALCIUM 8.2 mg/dL (8.5-10.1); CARBON DIOXIDE 29.6 mmol/L (21.0-32.0); CHLORIDE - SERUM 103 mmol/L (98-107); CREATININE - SERUM 0.7 mg/dL (0.6-1.3); GLUCOSE 132 mg/dL (74-106); POTASSIUM - SERUM 4.3 mmol/L (3.5-5.1); SODIUM 137 mmol/L (136-145); UREA NITROGEN 9 mg/dL (7-18); eGFR NON AFRICAN AMERICAN > 90 mL/min (90-120)
[2018-01-18 04:14] VITALS: BP 138/79
== END 2018-01-18 04:15 | disposition home or self-care (01) ==
LOC: D.ER 01:39
PROVIDERS: Family Medicine
DX: R60.9 Edema, unspecified (principal); J02.9 Acute pharyngitis, unspecified; I10 Essential (primary) hypertension; K21.9 Gastro-esophageal reflux disease without esophagitis; F17.200 Nicotine dependence, unspecified, uncomplicated

== ENCOUNTER 2018-02-28 18:34 | Emergency (ER) | payer MEDICAID ==
[~2018-02-28] VITALS: Ht 162.6 cm; Wt 77.3 kg
[~2018-02-28 18:34] MED LIST changes: +AMOXICILLI400 MG/5 M PO
[2018-02-28 18:38] VITALS: Ht 162.6 cm; Wt 77.3 kg
[2018-02-28 19:45] LABS: BASOPHILS 0.3 % (0-2); EOSINOPHILS 2.4 % (0-7); HEMATOCRIT 39.4 % (36.0-48.0); HEMOGLOBIN 13.2 g/dL (12-16); IMMATURE GRANULOCYTES 0.2 % (0-5); LYMPHOCYTES 31.6 % (15-50); MCH 28.4 pg (26.0-34.0); MCHC 33.5 g/dL (31.0-37.0); MCV 84.9 fL (80.0-100.0); MEAN PLATELET VOLUME 11.4 fL (7.4-10.4); MONOCYTES 5.5 % (2-11); PLATELET COUNT 258 10x3/uL (130-400); RBC 4.64 10x6/uL (4.00-5.40); RDW 14.2 % (11.5-14.5); WBC 9.8 10x3/uL (4.8-10.8)
[2018-02-28 20:30] LABS: ALKALINE PHOSPHATASE 58 U/L (46-116); ALT (SGPT) 19 U/L (10-68); BILIRUBIN - TOTAL 0.17 mg/dL (0.2-1.3); CALC OSMOLALITY 282 mosm/kg (275-300); CALCIUM 8.2 mg/dL (8.5-10.1); CARBON DIOXIDE 28.1 mmol/L (21.0-32.0); CHLORIDE - SERUM 107 mmol/L (98-107); CREATININE - SERUM 0.9 mg/dL (0.6-1.3); GLUCOSE 111 mg/dL (74-106); POTASSIUM - SERUM 3.3 mmol/L (3.5-5.1); PROTEIN - SERUM 7.1 g/dL (6.4-8.2); SODIUM 141 mmol/L (136-145); UREA NITROGEN 14 mg/dL (7-18); eGFR NON AFRICAN AMERICAN 70 mL/min (90-120)
[2018-02-28 20:45] LABS: CKMB 0.7 U/L (0.0-3.6); CREATINE KINASE 96 UL (21-215); MAGNESIUM - SERUM 1.8 mg/dL (1.8-2.4)
[2018-02-28 20:50] LABS: TROPONIN-I < 0.017 ng/mL (0.000-0.060)
[2018-02-28 23:39] VITALS: BP 132/77
== END 2018-03-01 00:04 | disposition home or self-care (01) ==
LOC: D.ER 18:34
PROVIDERS: Emergency Medicine
DX: E87.6 Hypokalemia (principal); R00.2 Palpitations; Z86.73 Personal history of transient ischemic attack (TIA), and cerebral infarction without residual deficits; I10 Essential (primary) hypertension; F17.200 Nicotine dependence, unspecified, uncomplicated

== ENCOUNTER 2018-04-20 21:34 | Emergency (ER) | payer MEDICAID ==
[~2018-04-20] VITALS: Ht 162.6 cm; Wt 77.3 kg
[2018-04-20 21:42] VITALS: Ht 162.6 cm; Wt 77.3 kg
[2018-04-20 22:51] LABS: BASOPHILS 0.4 % (0-2); EOSINOPHILS 2.7 % (0-7); HEMATOCRIT 37.8 % (36.0-48.0); HEMOGLOBIN 12.4 g/dL (12-16); IMMATURE GRANULOCYTES 0.1 % (0-5); LYMPHOCYTES 41.2 % (15-50); MCH 28.1 pg (26.0-34.0); MCHC 32.8 g/dL (31.0-37.0); MCV 85.5 fL (80.0-100.0); MEAN PLATELET VOLUME 11.7 fL (7.4-10.4); MONOCYTES 3.9 % (2-11); NEUTROPHILS 51.7 % (40-80); PLATELET COUNT 247 10x3/uL (130-400); RBC 4.42 10x6/uL (4.00-5.40); RDW 14.1 % (11.5-14.5); WBC 8.9 10x3/uL (4.8-10.8)
[2018-04-20 23:06] LABS: ALBUMIN 2.9 g/dL (3.4-5.0); ALKALINE PHOSPHATASE 49 U/L (46-116); ALT (SGPT) 22 U/L (10-68); BILIRUBIN - TOTAL 0.19 mg/dL (0.2-1.3); CALC OSMOLALITY 277 mosm/kg (275-300); CALCIUM 8.2 mg/dL (8.5-10.1); CHLORIDE - SERUM 104 mmol/L (98-107); CREATININE - SERUM 0.9 mg/dL (0.6-1.3); GLUCOSE 98 mg/dL (74-106); POTASSIUM - SERUM 3.8 mmol/L (3.5-5.1); PROTEIN - SERUM 6.9 g/dL (6.4-8.2); SODIUM 139 mmol/L (136-145); UREA NITROGEN 12 mg/dL (7-18); eGFR NON AFRICAN AMERICAN 70 mL/min (90-120)
[2018-04-20 23:19] LABS: CKMB 0.9 U/L (0.0-3.6); CREATINE KINASE 83 UL (21-215); TROPONIN-I < 0.017 ng/mL (0.000-0.060)
[2018-04-20] MEDS ORDERED: PHENERGAN DM SYR5 ML PO (23:19)
[2018-04-20] MEDS ORDERED: AUGMENTIN 875-11 TAB PO (23:19)
[2018-04-20 23:44] VITALS: BP 151/64
== END 2018-04-20 23:44 | disposition home or self-care (01) ==
LOC: D.ER 21:34
PROVIDERS: Family Medicine
DX: J01.90 Acute sinusitis, unspecified (principal); J06.9 Acute upper respiratory infection, unspecified; I10 Essential (primary) hypertension; F17.200 Nicotine dependence, unspecified, uncomplicated

== ENCOUNTER 2018-05-05 00:34 | Emergency (ER) | payer MEDICAID ==
[~2018-05-05] VITALS: Ht 162.6 cm; Wt 78.7 kg
[~2018-05-05 00:34] MED LIST changes: +AUGMENTIN 875-11 TAB PO; +PHENERGAN DM SYR5 ML PO
[2018-05-05 00:40] VITALS: Ht 162.6 cm; Wt 78.7 kg
[2018-05-05] MEDS ORDERED: CLAVULANATE (00:44)
[2018-05-05] MEDS ORDERED: AMOXICILLIN (00:44)
[2018-05-05] MEDS ORDERED: HCTZ25 MG PO (01:03)
[2018-05-05] MEDS ORDERED: NORVASC10 MG PO (01:03)
[2018-05-05 02:23] VITALS: BP 155/90
== END 2018-05-05 02:23 | disposition home or self-care (01) ==
LOC: D.ER 00:34
DX: I10 Essential (primary) hypertension (principal); Z86.73 Personal history of transient ischemic attack (TIA), and cerebral infarction without residual deficits

== ENCOUNTER 2018-06-17 19:20 | Emergency (ER) | payer MEDICAID ==
[~2018-06-17] VITALS: Ht 162.6 cm; Wt 79.8 kg
[~2018-06-17 19:20] MED LIST changes: +AMOXICILLIN; +CLAVULANATE; +HCTZ25 MG PO; +NORVASC10 MG PO
[2018-06-17 19:36] VITALS: Ht 162.6 cm; Wt 79.8 kg
[2018-06-17 19:53] LABS: BASOPHILS 0.4 % (0-2); EOSINOPHILS 1.8 % (0-7); HEMOGLOBIN 13.7 g/dL (12-16); IMMATURE GRANULOCYTES 0.3 % (0-5); LYMPHOCYTES 31.8 % (15-50); MCH 28.1 pg (26.0-34.0); MCHC 33.4 g/dL (31.0-37.0); MONOCYTES 4.1 % (2-11); NEUTROPHILS 61.6 % (40-80); PLATELET COUNT 284 10x3/uL (130-400); RBC 4.88 10x6/uL (4.00-5.40); RDW 14.3 % (11.5-14.5); WBC 10.8 10x3/uL (4.8-10.8)
[2018-06-17 20:10] LABS: ALKALINE PHOSPHATASE 65 U/L (46-116); ALT (SGPT) 33 U/L (10-68); BILIRUBIN - TOTAL 0.43 mg/dL (0.2-1.3); CALC OSMOLALITY 279 mosm/kg (275-300); CALCIUM 8.8 mg/dL (8.5-10.1); CARBON DIOXIDE 32.8 mmol/L (21.0-32.0); CHLORIDE - SERUM 101 mmol/L (98-107); CREATININE - SERUM 0.9 mg/dL (0.6-1.3); GLUCOSE 119 mg/dL (74-106); POTASSIUM - SERUM 3.5 mmol/L (3.5-5.1); PROTEIN - SERUM 7.6 g/dL (6.4-8.2); SODIUM 140 mmol/L (136-145); UREA NITROGEN 12 mg/dL (7-18); eGFR NON AFRICAN AMERICAN 70 mL/min (90-120)
[2018-06-17 20:19] LABS: CKMB 0.5 U/L (0.0-3.6); CREATINE KINASE 76 UL (21-215); MAGNESIUM - SERUM 1.7 mg/dL (1.8-2.4)
[2018-06-17 20:25] LABS: TROPONIN-I < 0.017 ng/mL (0.000-0.060)
[2018-06-17] MEDS ORDERED: ULTRAM50 MG PO (21:48)
[2018-06-18 00:03] VITALS: BP 133/89
== END 2018-06-18 00:03 | disposition home or self-care (01) ==
LOC: D.ER 19:20
PROVIDERS: Emergency Medicine
DX: R07.89 Other chest pain (principal); E83.42 Hypomagnesemia; I10 Essential (primary) hypertension; Z86.73 Personal history of transient ischemic attack (TIA), and cerebral infarction without residual deficits; F17.200 Nicotine dependence, unspecified, uncomplicated

== ENCOUNTER 2018-07-01 17:40 | Observation (INO) | payer MEDICAID ==
[~2018-07-01] VITALS: Ht 162.6 cm; Wt 79.7 kg
--- NOTE | ~2018-07-01 | HEMODYNAMI ---
PATIENT:VAMSI SIDDIQUI MEDICAL RECORD: [id number] : 69 LOCATION:[facility] D.2115 ADMISSION DATE: 07/01/18 Generatedon:07/02/201811:13 Patient name: VAMSI SIDDIQUI Patient #: [id number] SSN: DO B: 1965 Date of study: 07/02/2018 Page: Of Hemodynamic Procedure Report Patient Data Patient Demographics Procedure consent was obtained First Name: VAMSI Gender: Female Last Name: CHEN : 1965 Middle Initial: SAGE Age: 53 year(s) Patient #: [id number] Race: Black Additional ID: [id number] Contact details Address: [address] State: [place] City: [place] Zip code: [address] Past Medical History Allergies Allergen Reaction Date Comments Reported Bactrim 07/02/2018 Admission Admission Data Admission Date: 07/01/2018 Admission Time: 22:48 Room #: [facility] Lab Results Lab Result Date: 07/02/2018 Lab Result Time: 0:00 Biochemistry Name Units Result Min Max BUN mg/dl 13 --(--*-)-- 7 18 Creatinine mg/dl 0.8 --(-*--)-- 0.6 1.3 CBC Name Units Result Min Max Hemoglobin g/dl 12.3 *-(----)-- 13.5 17.5 Procedure Procedure Types Cath Procedure Diagnostic Procedure LHC LHC w/Coronaries Procedure Description Procedure Date Procedure Date: 07/02/2018 Procedure Start Time: 11:02 Procedure End Time: 11:08 Procedure Staff Name Function Riccardo Nava MD Performing Physician Anita Franco RT Monitor Julieta Ortiz RN Nurse Ronni Mendez RT Scrub Procedure Data Cath Procedure Fluoroscopy Diagnostic fluoroscopy Total fluoroscopy Time: 1.8 time: 1.8 min min Diagnostic fluoroscopy Total fluoroscopy dose: 281 dose: 281 mGy mGy Contrast Material Contrast Material Type Amount (ml) Isovue 300 35 Entry Location Entry Primary Successful Side Size Upsize Upsize Entry Closure Sharma ccessful Closure Location (Fr) 1 (Fr) 2 (Fr) Remarks Device Remarks Radial Right 6 Fr Mechanical artery Short Compression Estimated blood loss: 5 ml Diagnostic catheters Device Type Used For End Catheter Placement DIAGNOSTIC [place] 110cm 5 Procedure Fr catheter ([id number]) Procedure Complications No complications Procedure Medications Medication Administration Route Dosage Oxygen etCO2 Nasal cannula 2 l/min Lidocaine 2% added to field 20 Heparin Flush Bag added to field 2 bags (1000units/500ml NS) 0.9% NaCl I.V. 100 ml/hr Radial Cocktail I.A. 1 syringe (Verapomil 2mg/Nitro 400mcg/Heparin 1500units) Versed I.V. 1 mg Fentanyl I.V. 50 mcg Versed I.V. 1 mg Fentanyl I.V. 50 mcg Hemodynamics Rest Heart Rate: 52 (bpm) Snapshots Pre Cath Intra NCS Post Cath Vital Signs Time Heart Resp SPO2 etCO2 NIBP (mmHg) Rhythm Pain Sedation Rate (ipm) (%) (mmHg) Status Level (bpm) 10:51:45 56 14 100 0 171/84(148) NSR 0 (11) 10(A) , No pain 10:56:05 53 12 100 42.4 146/89(123) NSR 0 (11) 10(A) , No pain 11:01:04 56 16 100 29.5 Measuring NSR 0 (11) 10(A) , No pain 11:01:08 54 16 100 29.5 146/92(126) NSR 0 (11) 10(A) , No pain 11:05:22 61 15 100 39.4 135/79(112) NSR 0 (11) 9(A) , No pain 11:12:33 63 15 97 29.5 118/76(112) NSR 0 (11) 10(A) , No pain Medications Time Medication Route Dose Verified Delivered Reason Notes Effectiveness by by 10:52:00 Heparin Flush added 2 bags Riccardo Gu used for Bag to Elijah Nava MD procedure (1000units/500ml field NS) 10:52:09 0.9% NaCl I.V. 100 Riccardoefrain Rendon Per ml/hr Elijah Ortiz RN physician 10:52:15 Lidocaine 2% added 20ml Riccardo Gu for local to vial Elijah Nava MD anesthetic field 10:52:29 Oxygen etCO2 2 l/min Riccardo Rendon used for Nasal Elijah Ortiz RN procedure cannula 11:00:33 Versed I.V. 1 mg Riccardo Rendon for sedation Elijah Ortiz RN 11:00:39 Fentanyl I.V. 50 mcg Riccardo Rendon for sedation Elijah Ortiz RN 11:04:23 Radial Cocktail I.A. 1 Riccardo Gu for (Verapomil syringe Elijah Nava MD vasodilation 2mg/Nitro 400mcg/Heparin 1500units) 11:06:48 Versed I.V. 1 mg Riccardo Rendon for sedation Elijah Ortiz RN 11:06:52 Fentanyl I.V. 50 mcg Riccardo Rendon for sedation Elijah Ortiz RN Procedure Log Time Note 10:29:04 Ronni Mendez RT(R) sent for patient. Start room use. 10:29:05 Time tracking: Call back (After hours or weekends) 10:29:15 Plan of Care:Hemodynamics will remain stable., Cardiac rhythm will remain stable., Comfort level will be maintained., Respiratory function will remain adequate., Patient/ family verbilizes understanding of procedure., Procedure tolerated without complication., Recovers from procedure without complications.. 10:35:43 Signed procedure consent form obtained from patient. 10:35:44 Diagnostic Cath status Elective 10:37:05 Lab Result : BUN 13 mg/dl 10:37:05 Lab Result : Hemoglobin 12.3 g/dl 10:37:05 Lab Result : Creatinine 0.8 mg/dl 10:43:11 Patient allergic to Bactrim 10:45:47 Patient received from Med II to CCL 1 Alert and oriented. Tansferred to table in Supine position. 10:45:49 Warm blankets applied, and tao hugger turned on for patient comfort. 10:45:49 Correct patient and procedure confirmed by team. 10:45:50 ECG and BP/O2 sat monitors applied to patient. 10:50:30 Vital chart was started 10:52:00 Heparin Flush Bag (1000units/500ml NS) 2 bags added to field was administered by Riccardo Nava MD; used for procedure; 10:52:09 0.9% NaCl 100 ml/hr I.V. was administered by Buffie Ortiz RN; Per physician; 10:52:15 Lidocaine 2% 20ml vial added to field was administered by Riccardo Nava MD; for local anesthetic; 10:52:29 Oxygen 2 l/min etCO2 Nasal cannula was administered by Julieta Ortiz RN; used for procedure; 10:57:22 Baseline sample Acquired. 10:57:30 Rhythm: sinus bradycardia 10:57:31 Full Disclosure recording started 10:57:42 H&P Date Dictated: 07/01/2018 Within 30 days and on chart.. 10:57:43 Pre-procedure instructions explained to patient. 10:57:43 Pre-op teaching completed and patient verbalized understanding. 10:57:46 Family in patients room. 10:57:47 Patient NPO since Midnight. 10:57:49 Is patient on blood thinner?No 10:57:50 Patient diabetic? No. 10:57:54 Snore? Yes 10:57:55 Sleep apnea? Yes 10:57:56 Deviated septum? No 10:57:56 Opens mouth fully? Yes 10:57:57 Sticks out tongue? Yes 10:57:58 Airway obstruction? No ? 10:58:01 Dentures? No ? 10:58:03 Modified Dale's test Ulnar < 7 seconds 10:58:05 Patient pain scale 0/10 ?. 10:58:11 IV patent on arrival in right antecubital with 0.9% NaCl at [facility]. 10:58:13 Lab results completed and on chart. 10:58:16 Right Radial & Right Groin area was prepped with chlora-prep and draped in sterile fashion 10:58:17 Alarms reviewed by R. N. 10:58:17 Sharps counted by scrub and verified by R.N. 10:58:19 --------ALL STOP TIME OUT------ 10:58:19 Final Timeout: patient, procedure, and site verified with staff and physician. All members of the team are in agreement. 10:58:21 Right Radial & Right Groin site verified by team. 10:58:24 Physical assessment completed. ASA score P 2 - A patient with mild systemic disease as per Riccardo Nava MD. 10:58:26 Sedation plan: IV Moderate Sedation Medication:Versed, Fentanyl 11:00:33 Versed 1 mg I.V. was administered by Julieta Ortiz RN; for sedation; 11:00:39 Fentanyl 50 mcg I.V. was administered by Juileta Ortiz RN; for sedation; 11:02:35 Procedure started. 11:02:37 Zero performed for pressure channel P1 11:02:41 Local anesthetic to right radial artery with Lidocaine 2% by Riccardo Nava MD.INITIAL ACCESS ONLY 11:02:52 Use device set Radial Dx or PCI 11:02:53 ACIST Syringe (04095) opened to sterile field. 11:02:54 Bag Decanter (2002S) opened to sterile field. 11:02:55 ACIST Hand Control (93553) opened to sterile field. 11:02:55 ACIST Manifold (92776) opened to sterile field. 11:02:56 Tegaderm 4 x 4 (1626W) opened to sterile field. 11:02:57 Medline Cath Pack ([id number]) opened to sterile field. 11:02:57 DIAGNOSTIC WIRE .035 260cm J wire (930367) opened to sterile field. 11:02:58 MBrace Wrist Support ([id number]) opened to sterile field. 11:02:59 SHEATH 6FR Slender (80-0210) opened to sterile field. 11:03:25 A 6 Fr Short sheath was inserted into the Right Radial artery 11:03:41 A DIAGNOSTIC [place] 110cm 5 Fr catheter (668247) was advanced over the wire and used for Procedure. 11:04:23 Radial Cocktail (Verapomil 2mg/Nitro 400mcg/Heparin 1500units) 1 syringe I.A. was administered by Riccardo Nava MD; for vasodilation; 11:04:59 GLIDE WIRE ANGLE 260cm (JA2442) opened to sterile field. 11:05:28 GLIDE WIRE ADVANCED 11:05:47 LV gram done using BLUM 11:05:50 Injector settings: Ml/sec: 7, Volume: 15, 11:06:14 EF : 55 % 11:06:48 Versed 1 mg I.V. was administered by Julieta Ortiz RN; for sedation; 11:06:52 Fentanyl 50 mcg I.V. was administered by Julieta Ortiz RN; for sedation; 11:06:53 RCA angiography performed. 11:07:13 LCA angiography performed. 11:07:14 Catheter removed. 11:07:24 TR BAND Standard ([id number]) opened to sterile field. 11:07:29 Procedure ended.(Physican Out) 11:07:40 Sheath removed intact; hemostasis achieved with Mechanical Compression to the Right Radial artery. 11:07:58 Fluoroscopy time 01.80 minutes. 11:08:01 Contrast amount:Isovue 300 35ml. 11:08:05 Fluoroscopy dose: 281 mGy 11:08:05 Flurop Dose total: 281 11:08:09 TR band inflated with 12cc of air. 11:08:12 Post-procedure physical assessment completed. ASA score P 2 - A patient with mild systemic disease as per Riccardo Nava MD. 11:08:15 Post procedure rhythm: sinus rhythm 11:08:16 Estimated blood loss: 5 ml 11:08:18 Post procedure instruction explained to patient.Patient verbalizes understanding. 11:08:18 Patient needs reinforcement of post procedure teaching. 11:08:34 Procedure and supply charges have been captured, reviewed, submitted and are correct. 11:08:36 Procedure Complication : No complications 11:08:38 Vital chart was stopped 11:08:38 See physician's report for complete and final results. 11:08:40 Report given to PCU. 11:08:42 Patient transfered to PCU with Bed. 11:08:45 Procedure ended. 11:08:45 Full Disclosure recording stopped 11:08:47 End room use (Document Last) Device Usage Item Name Manufacture Quantity Catalog Hospital Part Current Minimal Lot# / Number Charge Number Stock Stock Serial# Code ACIST Acist 1 33850 883721 905344 966059 20 Syringe Medical (23941) Systems Inc Bag Microtek 1 555322 39826 611476 5 Decanter Medical Inc. () ACIST Hand Acist 1 77593 647146 189764 111194 5 Control Medical (05963) Systems Inc ACIST Acist 1 94856 764269 053860 784773 5 Manifold Medical (42067) Systems Inc Tegaderm 4 3M 1 1626W 030400 262308 244270 5 x 4 (1626W) Medline Medline 1 [id number] 239057 37065 041195 5 Cath Pack ([id number]) DIAGNOSTIC St Eduardo 1 705446 149111 273756 216571 30 WIRE .035 260cm J wire (311596) MBrace Advanced 1 140-0250-00 149574 09260 588684 5 Wrist Vascular Support Dynamics ([id number]) SHEATH 6FR Terumo 1 [id number] 752093 546400 791965 5 Slender (801060) DIAGNOSTIC Terumo 1 40-6272 417970 479234 226069 5 [place] 110cm 5 Fr catheter (325969) GLIDE WIRE Terumo 1 ZU0082 841033 486052 186007 5 ANGLE 260cm (QD4518) TR BAND Terumo 1 [id number] 005503 071662 034439 40 Standard ([id number]) Signature Audit [place] Stage Time Signature Unsigned Intra-Procedure 07/02/2018 Anita Franco 11:13:25 AM RT(R) Signatures Monitor : Anita Franco Signature : RT Date : Time : [id number] [place] [address]
[~2018-07-01 17:40] MED LIST changes: +ULTRAM50 MG PO
[2018-07-01] MEDS ORDERED: AMOXICILLIN500 M1 PO (17:53)
[2018-07-01 19:19] LABS: APTT 31.4 SECONDS (22.8-39.4); INR 0.96 (0.85-1.17); PROTIME 12.3 SECONDS (11.6-15.0)
[2018-07-01 19:20] LABS: D-DIMER-QUANTITATIVE 0.31 ug/mLFEU (0.20-0.54)
[2018-07-01 19:38] LABS: CKMB 0.5 U/L (0.0-3.6); CREATINE KINASE 90 UL (21-215); MAGNESIUM - SERUM 1.9 mg/dL (1.8-2.4)
[2018-07-01 19:42] LABS: TROPONIN-I < 0.017 ng/mL (0.000-0.060)
[2018-07-01 21:48] LABS: APPEARANCE CLEAR (CLEAR); BILIRUBIN NEGATIVE (NEGATIVE); COLOR YELLOW (YELLOW); GLUCOSE NEGATIVE (NEGATIVE); KETONE NEGATIVE (NEGATIVE); NITRITE NEGATIVE (NEGATIVE); PROTEIN NEGATIVE (NEGATIVE); SPECIFIC GRAVITY 1.015 (1.005-1.020); UROBILINOGEN NORMAL (NORMAL)
[2018-07-01 21:49] LABS: BACTERIA FEW /hpf (NONE SEEN); EPITHELIAL CELLS 0-5 /hpf (0-5); MUCUS <1+ /lpf (NONE SEEN); RED CELLS - URINE OCC /hpf (0-5); WHITE CELLS - URINE 0-5 /hpf (0-5)
[2018-07-02] VITALS: BP 149/87
[2018-07-02 00:25] VITALS: BP 149/87; Ht 162.6 cm; Wt 79.7 kg
[2018-07-02] MEDS ORDERED: VITAMIN D31000 UNIT PO (00:38)
[2018-07-02 04:00] VITALS: BP 136/80
[2018-07-02 05:39] LABS: BASOPHILS 0.3 % (0-2); EOSINOPHILS 3.4 % (0-7); HEMATOCRIT 37.4 % (36.0-48.0); HEMOGLOBIN 12.3 g/dL (12-16); IMMATURE GRANULOCYTES 0.1 % (0-5); LYMPHOCYTES 40.9 % (15-50); MCHC 32.9 g/dL (31.0-37.0); MEAN PLATELET VOLUME 11.1 fL (7.4-10.4); MONOCYTES 6.2 % (2-11); NEUTROPHILS 49.1 % (40-80); RDW 14.3 % (11.5-14.5)
[2018-07-02 05:44] LABS: PLATELET COUNT 216 10x3/uL (130-400)
[2018-07-02 06:06] LABS: ALBUMIN 2.7 g/dL (3.4-5.0); ALKALINE PHOSPHATASE 53 U/L (46-116); ALT (SGPT) 18 U/L (10-68); BILIRUBIN - TOTAL 0.46 mg/dL (0.2-1.3); CALC OSMOLALITY 275 mosm/kg (275-300); CALCIUM 8.3 mg/dL (8.5-10.1); CARBON DIOXIDE 27.4 mmol/L (21.0-32.0); CHLORIDE - SERUM 105 mmol/L (98-107); CKMB 0.2 U/L (0.0-3.6); CREATINE KINASE 71 UL (21-215); CREATININE - SERUM 0.8 mg/dL (0.6-1.3); GLUCOSE 106 mg/dL (74-106); MAGNESIUM - SERUM 2.2 mg/dL (1.8-2.4); POTASSIUM - SERUM 3.7 mmol/L (3.5-5.1); PROTEIN - SERUM 6.5 g/dL (6.4-8.2); SODIUM 138 mmol/L (136-145); TROPONIN-I < 0.017 ng/mL (0.000-0.060); UREA NITROGEN 13 mg/dL (7-18); eGFR NON AFRICAN AMERICAN 80 mL/min (90-120)
[2018-07-02 10:19] VITALS: BP 124/66
[2018-07-02] MEDS ORDERED: ASPIRIN325 MG PO (13:49)
[2018-07-02] MEDS ORDERED: METOPROLOL TART25 MG PO (13:51)
--- NOTE | 2018-07-04 10:12 | MORECARE ---
CASE MANAGEMENT DISCHARGE SUMMARY PATIENT: VAMSI SIDDIQUI UNIT: [id number] ADM DATE: 07/01/18 AGE: 53 : [birth year] SEX: F ROOM/BED: D.3005 AUTHOR: BERNABE GALLARDO PHYSICIAN: REFERRING PHYSICIAN: DIEGO ANDERSON MD DATE OF SERVICE: 07/04/18 Discharge Plan Patient Name: VAMSI SIDDIQUI Facility: [facility]:[place] : 1965 Planned Disposition: Home Anticipated Discharge Date: 07/02/18 Discharge Date: 07/02/2018 Expected LOS: 1 Initial Reviewer: [email or web address] Initial Review Date: 07/04/2018 Generated: 07/04/18 11:12 am Patient Name: VAMSI SIDDIQUI Page [id number] at 1012 All edits/amendments must be made on the electronic document DICTATION DATE: 07/04/18 1011 CLIENT DELIVERY MANAGER: KEVIN 07/04/18 1011 RPT#: [id number] DC DATE:07/02/18 STATUS: DIS IN [facility] [address] [place] [address] END OF REPORT
--- NOTE | 2018-07-04 14:36 | CN ---
PATIENT NAME:VAMSI BENEDICT MEDICAL RECORD: [id number] : 69 LOCATION:D. D.2115 ADMIT DATE: 07/01/18 ACCOUNT: [id number] CONSULTING PHYSICIAN: MAYANK YA MD REFERRING PHYSICIAN: DIEGO ANDERSON MD DATE OF CONSULTATION: 07/02/2018 CARDIOLOGY CONSULT DIAGNOSES: 1. Palpitation. 2. Chest pain. HISTORY: Mrs. Benedict presents with palpitations. She really did not have chest pain. She had a discomfort with the palpitations. She feels this on an intermittent basis. This goes back for 2 years. She had a workup and a 30-day monitor. At that time, nothing was found. She as well had a 30-day monitor approximately 3-4 months ago and again nothing was found. Both of these were done by other cardiology institutes. Yesterday, she felt palpitations throughout the day and tachycardia with her heart racing. She presented to the Emergency Room. She has had no dysrhythmias on telemetry overnight. Her troponin is normal. Her EKG has normal ST-T segments. OVERALL IMPRESSION: Palpitations. Difficult to say if she is having arrhythmia. Nothing has been documented on two 30-day monitors as well as overnight telemetry. I would give her p.r.n. metoprolol at low dose at 25 mg that she can take for the palpitations when she feels them. Otherwise, no other cardiac workup or treatment is necessary at this time. TRANSINT:[id number] Voice Confirmation ID: [id number] DOCUMENT ID: [id number] MAYANK YA MD at 1436 CC: [id number] DICTATION DATE: 07/02/18 0955 SHREDDED FILLER MACHINE WRAPPER LAYER: 07/02/18 1643 DIS IN 07/02/18 [facility] [address] [place] [id number]
--- NOTE | 2018-07-04 14:36 | EC ---
PATIENT:VAMSI SIDDIQUI DATE OF SERVICE: 07/01/18 SEX: F MEDICAL RECORD: [id number] DATE OF : [birth year] LOCATION:D.M2 D.211 AGE OF PATIENT: 53 ADMISSION DATE: 07/01/18 REFERRING PHYSICIAN: INTERPRETING PHYSICIAN: MAYANK NAVA MD ECHOCARDIOGRAM REPORT ECHO CHARGES 4 ECHO COMPLETE Date: 07/02/18 CLINICAL DIAGNOSIS: PALPITATIONS ECHOCARDIOGRAPHIC MEASUREMENTS (adult normal given) AC root (d.<3.7cm) 3.0 cm LV Septum d (<1.2 cm> 1.1 cm Valve Excursion 1.2 cm LV Septum (systole) 1.1 cm Left Atria (s.<4.0cm> 2.8 cm LVPW d(<1.2cm) 0.8 cm RV (d.<2.3cm) 3.2 cm LVPW (sytole) 1.0 cm LV diastole(<5.6CM) 4.4 cm MV E-F(>70mm/sec) cm LV systole 3.9 cm LVOT Diameter 1.5 cm MV exc.(>10mm) cm Est.ejection fraction (50-75%) % DOPPLER: LVIT cm/sec A 63 cm/sec E 74 cm/sec LA cm/sec RVSP 24.4 mmHg LVOT 103 cm/sec AOP1/2T m/s Asc. Ao 152 cm/sec RVOT 77 cm/sec RA cm/sec PA 72 cm/sec AV Gradient Peak 9.2 mmHg AV Mean 4.2 mmHg AV Area 1.2 cm MV Gradient Peak 3.1 mmHg MV Mean 1.7 mmHg MV Area cm COMMENTS: Mine Equipment Design Engineer: Nikolay MOSES Head Of Housekeeping: 1 Dr. Nava TAPE# PACS Pericardial Effusion N DATE OF SERVICE: 07/02/2018 FINDINGS: 1. Left ventricular chamber size is within normal limits. Left ventricular systolic function is normal. Overall ejection fraction is estimated at 55%. 2. Left atrium, right atrium, and right ventricle chamber sizes are within normal limit. 3. Valvular structures have normal structure and motion. 4. Doppler interrogation reveals mild tricuspid regurgitation. No other valvular insufficiency or stenosis. Pulmonary systolic pressure is normal, ECHOCARDIOGRAM REPORT [id number] VAMSI SIDDIQUI estimated at 24 mmHg. 5. No evidence of pericardial effusion or left ventricular thrombus. TRANSINT:[id number] Voice Confirmation ID: [id number] DOCUMENT ID: [id number] MAYANK NAVA MD at 1436 CC: [id number] DICTATION DATE: 07/03/18 1218 CARE PROGRAM RESIDENT: 07/03/18 1543 DIS IN 07/02/18 [place] [address] [place] [id number]
--- NOTE | 2018-07-04 14:36 | OP ---
PATIENT NAME: VAMSI SIDDIQUI MEDICAL RECORD: [id number] :[birth year] LOCATION:D.M2 D.2115 ADMISSION DATE:07/01/18 SURGEON: MAYANK YA MD DATE OF OPERATION: 07/01/2018 PROCEDURES: 1. Left heart catheterization. 2. Selective coronary angiography. 3. Left ventriculogram. INDICATION: Chest pain compatible with angina. PROCEDURE IN DETAIL: After informed consent was obtained with detailed description of risks and benefits as well as alternative therapies, the patient elected to proceed with angiogram and heart catheterization. The right radial area was prepped and draped in normal sterile fashion. Right radial artery was cannulated via modified Seldinger technique with placement of 5-Cypriot sheath. All catheters were exchanged through this sheath. FINDINGS: Left ventriculogram performed in standard 30-degree BLUM view reveals good cardiac wall motion throughout all segments. Overall ejection fraction estimated at 60%. SELECTIVE CORONARY ANGIOGRAPHY: Left main, left anterior descending, left circumflex, and right coronary artery are smooth-walled vessels with no angiographic evidence of coronary artery disease. OVERALL IMPRESSION: 1. No angiographic evidence of coronary artery disease. 2. Normal left heart pressures. 3. Normal left ventricular systolic function. Chest pain is noncardiac in etiology. No further cardiac workup needs to be ascertained. TRANSINT:[id number] Voice Confirmation ID: [id number] DOCUMENT ID: [id number] MAYANK YA MD at 1436 CC: [id number] DICTATION DATE: 07/02/18 1109 JACKER FEEDER: 07/02/18 1843 DIS IN 07/02/18 [facility] [address] [place] [id number]
--- NOTE | 2018-07-04 14:36 | CN ---
PATIENT NAME:VAMSI SIDDIQUI MEDICAL RECORD: [id number] : [birth year] LOCATION:D.M2 D.2115 ADMIT DATE: 07/01/18 ACCOUNT: [id number] CONSULTING PHYSICIAN: MAYANK YA MD REFERRING PHYSICIAN: DIEGO ANDERSON MD DATE OF CONSULTATION: 07/01/2018 ADDENDUM Initially, she stated that she was having just palpitations, but no chest pain. She then developed chest pain after I initially spoke with her. It was quite severe and quite compatible with angina. It was pressure and heavy sensation across her anterior chest. She continued to have this intermittently throughout the morning. She had no ST-T changes on her EKG, but continued to have the episodes of chest pain and now she states that this is what she has been feeling. This changes things that this is a chest pain compatible with angina. She continues to have the chest pain and she is diaphoretic with this. We will proceed with coronary angiography. TRANSINT:[id number] Voice Confirmation ID: [id number] DOCUMENT ID: [id number] MAYANK YA MD at 1436 CC: [id number] DICTATION DATE: 07/02/[address] TRAFFIC CONTROLLER: 07/02/18 1828 DIS IN 07/02/18 [address] [id number] [place] [address]
== END 2018-07-02 17:26 | disposition home or self-care (01) ==
LOC: D.ER 17:40 → OBSVTIME 22:48 → D.EDHOLD 22:48 → D.M2 22:57
PROVIDERS: Emergency Medicine; Family Medicine; ADMIT Family Medicine
DX: R07.89 Other chest pain (principal); R00.2 Palpitations; Z86.73 Personal history of transient ischemic attack (TIA), and cerebral infarction without residual deficits; I10 Essential (primary) hypertension; F41.9 Anxiety disorder, unspecified; F17.213 Nicotine dependence, cigarettes, with withdrawal

== ENCOUNTER 2018-07-28 10:19 | Emergency (ER) | payer MEDICAID ==
[~2018-07-28] VITALS: Ht 162.6 cm; Wt 77.3 kg
[~2018-07-28 10:19] MED LIST changes: +AMOXICILLIN500 M1 PO; +ASPIRIN325 MG PO; +METOPROLOL TART25 MG PO
[2018-07-28 10:43] VITALS: Ht 162.6 cm; Wt 77.3 kg
[2018-07-28 13:11] LABS: APPEARANCE CLEAR (CLEAR); BILIRUBIN NEGATIVE (NEGATIVE); COLOR YELLOW (YELLOW); GLUCOSE NEGATIVE (NEGATIVE); KETONE NEGATIVE (NEGATIVE); NITRITE NEGATIVE (NEGATIVE); PROTEIN NEGATIVE (NEGATIVE); SPECIFIC GRAVITY 1.015 (1.005-1.020); UROBILINOGEN NORMAL (NORMAL)
[2018-07-28 13:13] LABS: BACTERIA FEW /hpf (NONE SEEN); EPITHELIAL CELLS 0-5 /hpf (0-5); MUCUS <1+ /lpf (NONE SEEN); WHITE CELLS - URINE OCC /hpf (0-5)
[2018-07-28 15:00] VITALS: BP 147/82
== END 2018-07-28 15:00 | disposition home or self-care (01) ==
LOC: D.ER 10:19
PROVIDERS: Family Medicine
DX: R60.0 Localized edema (principal); R06.00 Dyspnea, unspecified; F17.200 Nicotine dependence, unspecified, uncomplicated

== ENCOUNTER 2018-08-10 20:05 | Emergency (ER) | payer MEDICAID ==
[~2018-08-10] VITALS: Ht 162.6 cm; Wt 81.4 kg
[2018-08-10 20:23] VITALS: Ht 162.6 cm; Wt 81.4 kg
[2018-08-10 21:12] LABS: BASOPHILS 0.2 % (0-2); EOSINOPHILS 1.2 % (0-7); HEMATOCRIT 37.1 % (36.0-48.0); HEMOGLOBIN 12.5 g/dL (12-16); IMMATURE GRANULOCYTES 0.2 % (0-5); LYMPHOCYTES 26.8 % (15-50); MCH 28.2 pg (26.0-34.0); MCHC 33.7 g/dL (31.0-37.0); MCV 83.7 fL (80.0-100.0); MEAN PLATELET VOLUME 10.9 fL (7.4-10.4); MONOCYTES 4.8 % (2-11); NEUTROPHILS 66.8 % (40-80); PLATELET COUNT 244 10x3/uL (130-400); RBC 4.43 10x6/uL (4.00-5.40); RDW 14.2 % (11.5-14.5)
[2018-08-10 21:20] LABS: APTT 31.2 SECONDS (22.8-39.4); INR 0.93 (0.85-1.17)
[2018-08-10 21:28] LABS: ALBUMIN 2.7 g/dL (3.4-5.0); ALKALINE PHOSPHATASE 70 U/L (46-116); ALT (SGPT) 24 U/L (10-68); BILIRUBIN - TOTAL 0.18 mg/dL (0.2-1.3); CALC OSMOLALITY 278 mosm/kg (275-300); CALCIUM 8.4 mg/dL (8.5-10.1); CARBON DIOXIDE 29.4 mmol/L (21.0-32.0); CHLORIDE - SERUM 102 mmol/L (98-107); GLUCOSE 121 mg/dL (74-106); POTASSIUM - SERUM 3.3 mmol/L (3.5-5.1); PROTEIN - SERUM 6.8 g/dL (6.4-8.2); SODIUM 139 mmol/L (136-145); UREA NITROGEN 12 mg/dL (7-18); eGFR NON AFRICAN AMERICAN 62 mL/min (90-120)
[2018-08-10 21:41] LABS: CKMB 0.2 U/L (0.0-3.6); CREATINE KINASE 50 UL (21-215); PRO BNP 108 pg/mL (0-125)
[2018-08-10 21:46] LABS: TROPONIN-I < 0.017 ng/mL (0.000-0.060)
[2018-08-11] MEDS ORDERED: MEDROL DOSE PACK4 MG PO (00:54)
[2018-08-11] MEDS ORDERED: ACETAMINOPHEN500 M1 PO (00:54)
[2018-08-11] MEDS ORDERED: ZPAK PO (00:54)
[2018-08-11] MEDS ORDERED: ALBUTEROL SULF8.5 GM INH (00:56)
[2018-08-11 01:06] VITALS: BP 146/86
== END 2018-08-11 01:06 | disposition home or self-care (01) ==
LOC: D.ER 20:05
PROVIDERS: Family Medicine
DX: J40 Bronchitis, not specified as acute or chronic (principal); R05 Cough; R09.89 Other specified symptoms and signs involving the circulatory and respiratory systems; J06.9 Acute upper respiratory infection, unspecified; Z86.73 Personal history of transient ischemic attack (TIA), and cerebral infarction without residual deficits; I10 Essential (primary) hypertension; F17.200 Nicotine dependence, unspecified, uncomplicated

== ENCOUNTER 2018-08-27 09:24 | Emergency (ER) | payer MEDICAID ==
[~2018-08-27] VITALS: Ht 162.6 cm; Wt 80.5 kg
[~2018-08-27 09:24] MED LIST changes: +ACETAMINOPHEN500 M1 PO; +ALBUTEROL SULF8.5 GM INH; +ZPAK PO
[2018-08-27 09:54] VITALS: Ht 162.6 cm; Wt 80.5 kg
[2018-08-27 10:15] LABS: BASOPHILS 0.3 % (0-2); EOSINOPHILS 2.6 % (0-7); HEMATOCRIT 39.1 % (36.0-48.0); HEMOGLOBIN 13.1 g/dL (12-16); IMMATURE GRANULOCYTES 0.2 % (0-5); MCH 28.4 pg (26.0-34.0); MCHC 33.5 g/dL (31.0-37.0); MCV 84.6 fL (80.0-100.0); MEAN PLATELET VOLUME 12.3 fL (7.4-10.4); MONOCYTES 5.2 % (2-11); NEUTROPHILS 57.7 % (40-80); RBC 4.62 10x6/uL (4.00-5.40); RDW 14.7 % (11.5-14.5); WBC 8.6 10x3/uL (4.8-10.8)
[2018-08-27 10:17] LABS: PLATELET COUNT 308 10x3/uL (130-400)
[2018-08-27 10:25] LABS: APTT 30.5 SECONDS (22.8-39.4); INR 0.93 (0.85-1.17)
[2018-08-27 11:29] LABS: ALBUMIN 2.8 g/dL (3.4-5.0); ALKALINE PHOSPHATASE 60 U/L (46-116); ALT (SGPT) 21 U/L (10-68); BILIRUBIN - TOTAL 0.32 mg/dL (0.2-1.3); CALC OSMOLALITY 282 mosm/kg (275-300); CALCIUM 8.1 mg/dL (8.5-10.1); CARBON DIOXIDE 30.1 mmol/L (21.0-32.0); CHLORIDE - SERUM 106 mmol/L (98-107); CREATININE - SERUM 0.7 mg/dL (0.6-1.3); GLUCOSE 101 mg/dL (74-106); POTASSIUM - SERUM 3.5 mmol/L (3.5-5.1); PROTEIN - SERUM 6.8 g/dL (6.4-8.2); SODIUM 142 mmol/L (136-145); UREA NITROGEN 12 mg/dL (7-18); eGFR NON AFRICAN AMERICAN > 90 mL/min (90-120)
[2018-08-27 11:39] LABS: CKMB 0.7 U/L (0.0-3.6); CREATINE KINASE 56 UL (21-215); PRO BNP 60 pg/mL (0-125)
[2018-08-27 11:40] LABS: TROPONIN-I < 0.017 ng/mL (0.000-0.060)
[2018-08-27 13:06] VITALS: BP 144/88
== END 2018-08-27 13:07 | disposition home or self-care (01) ==
LOC: D.ER 09:24
PROVIDERS: Family Medicine
DX: J40 Bronchitis, not specified as acute or chronic (principal); F41.9 Anxiety disorder, unspecified; Z86.73 Personal history of transient ischemic attack (TIA), and cerebral infarction without residual deficits; I10 Essential (primary) hypertension; F17.200 Nicotine dependence, unspecified, uncomplicated

== ENCOUNTER 2018-08-31 22:26 | Emergency (ER) | payer MEDICAID ==
[~2018-08-31] VITALS: Ht 162.6 cm; Wt 82.7 kg
[2018-08-31 22:36] VITALS: Ht 162.6 cm; Wt 82.7 kg
[2018-08-31 23:02] LABS: BASOPHILS 0.2 % (0-2); EOSINOPHILS 2.9 % (0-7); HEMATOCRIT 39.7 % (36.0-48.0); HEMOGLOBIN 13.1 g/dL (12-16); IMMATURE GRANULOCYTES 0.3 % (0-5); LYMPHOCYTES 35.6 % (15-50); MCH 28.2 pg (26.0-34.0); MCV 85.6 fL (80.0-100.0); MEAN PLATELET VOLUME 10.7 fL (7.4-10.4); MONOCYTES 6.3 % (2-11); NEUTROPHILS 54.7 % (40-80); PLATELET COUNT 254 10x3/uL (130-400); RBC 4.64 10x6/uL (4.00-5.40); RDW 14.8 % (11.5-14.5)
[2018-08-31 23:16] LABS: APTT 31.9 SECONDS (22.8-39.4); INR 0.92 (0.85-1.17); PROTIME 11.9 SECONDS (11.6-15.0)
[2018-08-31 23:20] LABS: ALBUMIN 3.1 g/dL (3.4-5.0); ALKALINE PHOSPHATASE 69 U/L (46-116); ALT (SGPT) 19 U/L (10-68); BILIRUBIN - TOTAL 0.19 mg/dL (0.2-1.3); CALC OSMOLALITY 280 mosm/kg (275-300); CALCIUM 8.3 mg/dL (8.5-10.1); CARBON DIOXIDE 31.4 mmol/L (21.0-32.0); CHLORIDE - SERUM 105 mmol/L (98-107); CREATININE - SERUM 0.8 mg/dL (0.6-1.3); GLUCOSE 100 mg/dL (74-106); POTASSIUM - SERUM 3.9 mmol/L (3.5-5.1); PROTEIN - SERUM 7.4 g/dL (6.4-8.2); SODIUM 140 mmol/L (136-145); UREA NITROGEN 17 mg/dL (7-18); eGFR NON AFRICAN AMERICAN 80 mL/min (90-120)
[2018-08-31 23:30] LABS: CKMB 0.6 U/L (0.0-3.6); CREATINE KINASE 54 UL (21-215); MAGNESIUM - SERUM 1.9 mg/dL (1.8-2.4); TROPONIN-I < 0.017 ng/mL (0.000-0.060)
[2018-08-31 23:57] LABS: APPEARANCE CLEAR (CLEAR); BILIRUBIN NEGATIVE (NEGATIVE); COLOR YELLOW (YELLOW); GLUCOSE NEGATIVE (NEGATIVE); KETONE NEGATIVE (NEGATIVE); NITRITE NEGATIVE (NEGATIVE); PROTEIN NEGATIVE (NEGATIVE); UROBILINOGEN NORMAL (NORMAL)
[2018-08-31 23:58] LABS: BACTERIA FEW /hpf (NONE SEEN); EPITHELIAL CELLS 0-5 /hpf (0-5); WHITE CELLS - URINE 0-5 /hpf (0-5)
[2018-09-01] MEDS ORDERED: MACROBID100 MG PO (00:24)
[2018-09-01] MEDS ORDERED: PHENAZOPYRIDIN100 MG PO (00:24)
[2018-09-01 00:35] VITALS: BP 147/77
== END 2018-09-01 00:35 | disposition home or self-care (01) ==
LOC: D.ER 22:26
PROVIDERS: Family Medicine
DX: N39.0 Urinary tract infection, site not specified (principal)

== ENCOUNTER 2018-11-03 01:46 | Emergency (ER) | payer MEDICAID ==
[~2018-11-03 01:46] MED LIST changes: +MACROBID100 MG PO; +PHENAZOPYRIDIN100 MG PO
[2018-11-03 01:53] VITALS: BMI 31.3
[2018-11-03 02:30] LABS: BASOPHILS 0.2 % (0-2); EOSINOPHILS 0.7 % (0-7); HEMOGLOBIN 12.9 g/dL (12-16); IMMATURE GRANULOCYTES 0.2 % (0-5); LYMPHOCYTES 20.8 % (15-50); MCH 28.3 pg (26.0-34.0); MCHC 33.9 g/dL (31.0-37.0); MCV 83.3 fL (80.0-100.0); MEAN PLATELET VOLUME 10.8 fL (7.4-10.4); MONOCYTES 4.9 % (2-11); NEUTROPHILS 73.2 % (40-80); PLATELET COUNT 218 10x3/uL (130-400); RBC 4.56 10x6/uL (4.00-5.40); RDW 14.2 % (11.5-14.5); WBC 15.4 10x3/uL (4.8-10.8)
[2018-11-03 02:42] LABS: ALBUMIN 3.2 g/dL (3.4-5.0); ALKALINE PHOSPHATASE 56 U/L (46-116); ALT (SGPT) 17 U/L (10-68); APTT 30.2 SECONDS (22.8-39.4); BILIRUBIN - TOTAL 0.44 mg/dL (0.2-1.3); CALC OSMOLALITY 279 mosm/kg (275-300); CALCIUM 8.2 mg/dL (8.5-10.1); CARBON DIOXIDE 28.9 mmol/L (21.0-32.0); CHLORIDE - SERUM 102 mmol/L (98-107); CREATININE - SERUM 0.8 mg/dL (0.6-1.3); GLUCOSE 110 mg/dL (74-106); POTASSIUM - SERUM 3.6 mmol/L (3.5-5.1); PROTEIN - SERUM 7.3 g/dL (6.4-8.2); PROTIME 12.7 SECONDS (11.6-15.0); SODIUM 140 mmol/L (136-145); UREA NITROGEN 12 mg/dL (7-18); eGFR NON AFRICAN AMERICAN 80 mL/min (90-120)
[2018-11-03 02:54] LABS: CKMB 0.4 U/L (0.0-3.6); CREATINE KINASE 82 UL (21-215); MAGNESIUM - SERUM 1.6 mg/dL (1.8-2.4)
[2018-11-03 02:57] LABS: TROPONIN-I < 0.017 ng/mL (0.000-0.060)
[2018-11-03 03:26] VITALS: BP 149/97
[2018-11-03] MEDS ORDERED: OMEPRAZOLE20 M1 PO (03:30)
[2018-11-03] MEDS ORDERED: CATAPRES0.1 MG PO (03:30)
== END 2018-11-03 04:11 | disposition home or self-care (01) ==
LOC: D.ER 01:46
PROVIDERS: Family Medicine
DX: R20.2 Paresthesia of skin (principal); K21.9 Gastro-esophageal reflux disease without esophagitis

== ENCOUNTER 2018-11-11 22:19 | Emergency (ER) | payer MEDICAID ==
[~2018-11-11 22:19] MED LIST changes: +CATAPRES0.1 MG PO; +OMEPRAZOLE20 M1 PO
[2018-11-11 22:31] VITALS: BMI 30.9
[2018-11-11 22:49] LABS: BASOPHILS 0.4 % (0-2); EOSINOPHILS 3.3 % (0-7); HEMATOCRIT 42.4 % (36.0-48.0); HEMOGLOBIN 14.1 g/dL (12-16); IMMATURE GRANULOCYTES 0.2 % (0-5); LYMPHOCYTES 35.9 % (15-50); MCH 28.2 pg (26.0-34.0); MCHC 33.3 g/dL (31.0-37.0); MCV 84.8 fL (80.0-100.0); MEAN PLATELET VOLUME 11.2 fL (7.4-10.4); MONOCYTES 3.8 % (2-11); NEUTROPHILS 56.4 % (40-80); PLATELET COUNT 257 10x3/uL (130-400); WBC 10.2 10x3/uL (4.8-10.8)
[2018-11-11 23:01] LABS: ALBUMIN 3.2 g/dL (3.4-5.0); ALKALINE PHOSPHATASE 63 U/L (46-116); ALT (SGPT) 19 U/L (10-68); BILIRUBIN - TOTAL 0.25 mg/dL (0.2-1.3); CALC OSMOLALITY 283 mosm/kg (275-300); CALCIUM 8.6 mg/dL (8.5-10.1); CARBON DIOXIDE 28.1 mmol/L (21.0-32.0); CHLORIDE - SERUM 104 mmol/L (98-107); CREATININE - SERUM 0.9 mg/dL (0.6-1.3); GLUCOSE 112 mg/dL (74-106); POTASSIUM - SERUM 3.6 mmol/L (3.5-5.1); PROTEIN - SERUM 7.7 g/dL (6.4-8.2); SODIUM 142 mmol/L (136-145); UREA NITROGEN 13 mg/dL (7-18); eGFR NON AFRICAN AMERICAN 70 mL/min (90-120)
[2018-11-11 23:08] LABS: TROPONIN-I < 0.017 ng/mL (0.000-0.060)
[2018-11-12 00:06] LABS: APPEARANCE CLEAR (CLEAR); BILIRUBIN NEGATIVE (NEGATIVE); COLOR YELLOW (YELLOW); GLUCOSE NEGATIVE (NEGATIVE); KETONE NEGATIVE (NEGATIVE); NITRITE NEGATIVE (NEGATIVE); PROTEIN NEGATIVE (NEGATIVE); RED CELLS - URINE 0-5 /hpf (0-5); UROBILINOGEN NORMAL (NORMAL); WHITE CELLS - URINE NSEEN /hpf (0-5)
[2018-11-12 00:40] VITALS: BP 146/69
== END 2018-11-12 00:40 | disposition home or self-care (01) ==
LOC: D.ER 22:19
PROVIDERS: Family Medicine
DX: R07.89 Other chest pain (principal); I10 Essential (primary) hypertension

== ENCOUNTER 2018-11-16 17:49 | Emergency (ER) | payer MEDICAID ==
[~2018-11-16] VITALS: Ht 162.6 cm; Wt 82.7 kg
[2018-11-16 17:59] VITALS: Ht 162.6 cm; Wt 82.7 kg
[2018-11-16] MEDS ORDERED: PENICILLIN VK250 MG PO (18:03)
[2018-11-16 18:36] LABS: BASOPHILS 0.3 % (0-2); EOSINOPHILS 2.3 % (0-7); HEMATOCRIT 39.3 % (36.0-48.0); HEMOGLOBIN 13.4 g/dL (12-16); IMMATURE GRANULOCYTES 0.2 % (0-5); LYMPHOCYTES 29.6 % (15-50); MCH 28.5 pg (26.0-34.0); MCHC 34.1 g/dL (31.0-37.0); MCV 83.4 fL (80.0-100.0); MEAN PLATELET VOLUME 11.2 fL (7.4-10.4); MONOCYTES 4.9 % (2-11); NEUTROPHILS 62.7 % (40-80); PLATELET COUNT 250 10x3/uL (130-400); RBC 4.71 10x6/uL (4.00-5.40); RDW 13.7 % (11.5-14.5); WBC 9.7 10x3/uL (4.8-10.8)
[2018-11-16 18:47] LABS: APTT 30.6 SECONDS (22.8-39.4); INR 1.03 (0.85-1.17)
[2018-11-16 19:03] LABS: ALBUMIN 3.1 g/dL (3.4-5.0); ALKALINE PHOSPHATASE 60 U/L (46-116); ALT (SGPT) 24 U/L (10-68); BILIRUBIN - TOTAL 0.31 mg/dL (0.2-1.3); CALC OSMOLALITY 276 mosm/kg (275-300); CALCIUM 8.6 mg/dL (8.5-10.1); CARBON DIOXIDE 29.5 mmol/L (21.0-32.0); CHLORIDE - SERUM 104 mmol/L (98-107); CREATININE - SERUM 0.9 mg/dL (0.6-1.3); GLUCOSE 120 mg/dL (74-106); POTASSIUM - SERUM 3.2 mmol/L (3.5-5.1); PROTEIN - SERUM 7.1 g/dL (6.4-8.2); SODIUM 138 mmol/L (136-145); UREA NITROGEN 12 mg/dL (7-18); eGFR NON AFRICAN AMERICAN 70 mL/min (90-120)
[2018-11-16 19:14] LABS: CKMB 0.5 U/L (0.0-3.6); CREATINE KINASE 52 UL (21-215); MAGNESIUM - SERUM 1.5 mg/dL (1.8-2.4); TROPONIN-I < 0.017 ng/mL (0.000-0.060)
[2018-11-16 21:17] LABS: UDS - AMPHET NEGATIVE QUAL (NEGATIVE); UDS - BARB NEGATIVE QUAL (NEGATIVE); UDS - BENZO NEGATIVE QUAL (NEGATIVE); UDS - COCAINE NEGATIVE QUAL (NEGATIVE); UDS - OPIATE NEGATIVE QUAL (NEGATIVE); UDS - PCP NEGATIVE QUAL (NEGATIVE); UDS - THC NEGATIVE QUAL (NEGATIVE)
[2018-11-16 21:44] LABS: CKMB 0.1 U/L (0.0-3.6); CREATINE KINASE 54 UL (21-215)
[2018-11-16 21:47] LABS: TROPONIN-I < 0.017 ng/mL (0.000-0.060)
[2018-11-16 22:57] VITALS: BP 174/93
== END 2018-11-16 22:57 | disposition home or self-care (01) ==
LOC: D.ER 17:49
PROVIDERS: Family Medicine
DX: F41.1 Generalized anxiety disorder (principal)

== ENCOUNTER 2018-12-31 20:50 | Emergency (ER) | payer MEDICAID ==
[~2018-12-31] VITALS: Ht 162.6 cm; Wt 82.7 kg
[~2018-12-31 20:50] MED LIST changes: +PENICILLIN VK250 MG PO
[2018-12-31 20:54] VITALS: Ht 162.6 cm; Wt 82.7 kg
[2018-12-31 22:04] VITALS: BP 161/88
== END 2018-12-31 22:05 | disposition home or self-care (01) ==
LOC: D.ER 20:50
DX: S93.401A Sprain of unspecified ligament of right ankle, initial encounter (principal); X50.1XXA Overexertion from prolonged static or awkward postures, initial encounter; Y93.89 Activity, other specified; Y92.89 Other specified places as the place of occurrence of the external cause; I10 Essential (primary) hypertension

== ENCOUNTER 2019-01-06 23:18 | Emergency (ER) | payer MEDICAID ==
[~2019-01-06] VITALS: Ht 162.6 cm; Wt 81.8 kg
[2019-01-06 23:30] VITALS: Ht 162.6 cm; Wt 81.8 kg
[2019-01-07 00:11] LABS: APPEARANCE CLEAR (CLEAR); COLOR YELLOW (YELLOW)
[2019-01-07 00:12] LABS: BACTERIA NONE SEEN /hpf (NONE SEEN); BILIRUBIN NEGATIVE (NEGATIVE); EPITHELIAL CELLS RARE /hpf (0-5); GLUCOSE NEGATIVE (NEGATIVE); KETONE NEGATIVE (NEGATIVE); NITRITE NEGATIVE (NEGATIVE); PROTEIN NEGATIVE (NEGATIVE); SPECIFIC GRAVITY 1.015 (1.005-1.020); UROBILINOGEN NORMAL (NORMAL); WHITE CELLS - URINE NSEEN /hpf (0-5)
[2019-01-07 00:30] LABS: BASOPHILS 0.3 % (0-2); HEMATOCRIT 38.5 % (36.0-48.0); HEMOGLOBIN 12.9 g/dL (12-16); IMMATURE GRANULOCYTES 0.2 % (0-5); LYMPHOCYTES 37.5 % (15-50); MCH 27.3 pg (26.0-34.0); MCHC 33.5 g/dL (31.0-37.0); MCV 81.4 fL (80.0-100.0); MEAN PLATELET VOLUME 11.9 fL (7.4-10.4); MONOCYTES 5.8 % (2-11); NEUTROPHILS 51.2 % (40-80); PLATELET COUNT 239 10x3/uL (130-400); RBC 4.73 10x6/uL (4.00-5.40); RDW 14.4 % (11.5-14.5); WBC 9.8 10x3/uL (4.8-10.8)
[2019-01-07 00:43] LABS: ALBUMIN 3.1 g/dL (3.4-5.0); ANION GAP 9.7 mmol/L (8-16); BILIRUBIN - TOTAL 0.3 mg/dL (0.2-1.3); CALCIUM 8.4 mg/dL (8.5-10.1); CARBON DIOXIDE 31.1 mmol/L (21.0-32.0); CREATININE - SERUM 0.9 mg/dL (0.6-1.3); MAGNESIUM - SERUM 1.8 mg/dL (1.8-2.4); POTASSIUM - SERUM 3.8 mmol/L (3.5-5.1); PROTEIN - SERUM 7.3 g/dL (6.4-8.2)
[2019-01-07] MEDS ORDERED: LISINOPRIL-HCT1 EAC4 PO (01:27)
[2019-01-07 01:48] LABS: CREATINE KINASE 101 UL (21-215); TROPONIN-I < 0.017 ng/mL (0.000-0.060)
[2019-01-07] MEDS ORDERED: NORVASC2.5 MG PO (01:56)
[2019-01-07 02:23] VITALS: BP 162/79
== END 2019-01-07 02:20 | disposition home or self-care (01) ==
LOC: D.ER 23:18
PROVIDERS: Emergency Medicine
DX: I10 Essential (primary) hypertension (principal); E86.0 Dehydration

== ENCOUNTER 2019-01-30 23:09 | Emergency (ER) | payer MEDICAID ==
[~2019-01-30] VITALS: Ht 162.6 cm; Wt 82.3 kg
[~2019-01-30 23:09] MED LIST changes: +LISINOPRIL-HCT1 EAC4 PO; +NORVASC2.5 MG PO
[2019-01-30 23:14] VITALS: Ht 162.6 cm; Wt 82.3 kg
[2019-01-31 00:22] VITALS: BP 148/85
== END 2019-01-31 00:23 | disposition home or self-care (01) ==
LOC: D.ER 23:09
DX: S05.02XA Injury of conjunctiva and corneal abrasion without foreign body, left eye, initial encounter (principal); X58.XXXA Exposure to other specified factors, initial encounter; Y93.89 Activity, other specified; Y92.89 Other specified places as the place of occurrence of the external cause

== ENCOUNTER 2019-02-14 20:49 | Emergency (ER) | payer MEDICAID ==
[~2019-02-14] VITALS: Ht 162.6 cm; Wt 82.3 kg
[2019-02-14 20:56] VITALS: Ht 162.6 cm; Wt 82.3 kg
[2019-02-14 21:42] LABS: BASOPHILS 0.3 % (0-2); EOSINOPHILS 2.6 % (0-7); HEMATOCRIT 37.1 % (36.0-48.0); HEMOGLOBIN 12.7 g/dL (12-16); IMMATURE GRANULOCYTES 0.2 % (0-5); LYMPHOCYTES 32.4 % (15-50); MCHC 34.2 g/dL (31.0-37.0); MCV 81.9 fL (80.0-100.0); MEAN PLATELET VOLUME 11.2 fL (7.4-10.4); MONOCYTES 5.1 % (2-11); NEUTROPHILS 59.4 % (40-80); PLATELET COUNT 235 10x3/uL (130-400); RBC 4.53 10x6/uL (4.00-5.40); RDW 14.5 % (11.5-14.5); WBC 10.5 10x3/uL (4.8-10.8)
[2019-02-14 21:53] LABS: APPEARANCE CLEAR (CLEAR); BILIRUBIN NEGATIVE (NEGATIVE); COLOR YELLOW (YELLOW); GLUCOSE NEGATIVE (NEGATIVE); KETONE NEGATIVE (NEGATIVE); NITRITE NEGATIVE (NEGATIVE); PROTEIN NEGATIVE (NEGATIVE); SPECIFIC GRAVITY 1.025 (1.005-1.020); UROBILINOGEN NORMAL (NORMAL)
[2019-02-14 21:54] LABS: BACTERIA MODERATE /hpf (NONE SEEN); EPITHELIAL CELLS 0-5 /hpf (0-5); MUCUS <1+ /lpf (NONE SEEN); RED CELLS - URINE 0-5 /hpf (0-5); WHITE CELLS - URINE 0-5 /hpf (0-5)
[2019-02-14 21:57] LABS: ALKALINE PHOSPHATASE 60 U/L (46-116); ALT (SGPT) 18 U/L (10-68); CALC OSMOLALITY 291 mosm/kg (275-300); CALCIUM 8.5 mg/dL (8.5-10.1); CARBON DIOXIDE 27.5 mmol/L (21.0-32.0); CHLORIDE - SERUM 108 mmol/L (98-107); CREATININE - SERUM 0.9 mg/dL (0.6-1.3); GLUCOSE 116 mg/dL (74-106); POTASSIUM - SERUM 3.6 mmol/L (3.5-5.1); SODIUM 146 mmol/L (136-145); UREA NITROGEN 13 mg/dL (7-18); eGFR NON AFRICAN AMERICAN 70 mL/min (90-120)
[2019-02-14 22:08] LABS: CKMB 0.6 U/L (0.0-3.6); CREATINE KINASE 70 UL (21-215)
[2019-02-14 22:15] LABS: TROPONIN-I < 0.017 ng/mL (0.000-0.060)
[2019-02-14] MEDS ORDERED: PROVENTIL/2.5 MG/3 M INH (22:46)
[2019-02-14] MEDS ORDERED: AUGMENTIN 875-11 TAB PO (22:46)
[2019-02-14 23:56] VITALS: BP 140/75
== END 2019-02-14 23:57 | disposition home or self-care (01) ==
LOC: D.ER 20:49
PROVIDERS: Family Medicine
DX: R06.00 Dyspnea, unspecified (principal); K21.9 Gastro-esophageal reflux disease without esophagitis; J32.9 Chronic sinusitis, unspecified; I10 Essential (primary) hypertension; F17.210 Nicotine dependence, cigarettes, uncomplicated

== ENCOUNTER 2019-03-20 19:45 | Emergency (ER) | payer MEDICAID ==
[~2019-03-20] VITALS: Ht 162.6 cm; Wt 82.7 kg
[~2019-03-20 19:45] MED LIST changes: +PROVENTIL/2.5 MG/3 M INH
[2019-03-20 20:26] VITALS: Ht 162.6 cm; Wt 82.7 kg
[2019-03-20] MEDS ORDERED: FISH OIL 1,0001 CA1 PO ×2 (20:29→20:30)
[2019-03-20] MEDS ORDERED: VITAMIN D31000 UNIT PO (20:29)
[2019-03-20] MEDS ORDERED: APPLE CIDER VINEGAR (20:30)
[2019-03-20 21:11] LABS: BASOPHILS 0.4 % (0-2); EOSINOPHILS 2.2 % (0-7); HEMATOCRIT 37.1 % (36.0-48.0); HEMOGLOBIN 12.6 g/dL (12-16); IMMATURE GRANULOCYTES 0.2 % (0-5); LYMPHOCYTES 29.3 % (15-50); MCH 28.4 pg (26.0-34.0); MCV 83.6 fL (80.0-100.0); MONOCYTES 5.6 % (2-11); NEUTROPHILS 62.3 % (40-80); PLATELET COUNT 263 10x3/uL (130-400); RBC 4.44 10x6/uL (4.00-5.40); RDW 14.4 % (11.5-14.5)
[2019-03-20 21:14] LABS: APTT 29.8 SECONDS (22.8-39.4); INR 0.94 (0.85-1.17); PROTIME 12.1 SECONDS (11.6-15.0)
[2019-03-20 21:19] LABS: ALKALINE PHOSPHATASE 68 U/L (46-116); ALT (SGPT) 24 U/L (10-68); BILIRUBIN - TOTAL 0.25 mg/dL (0.2-1.3); CALC OSMOLALITY 292 mosm/kg (275-300); CALCIUM 8.4 mg/dL (8.5-10.1); CHLORIDE - SERUM 107 mmol/L (98-107); GLUCOSE 90 mg/dL (74-106); POTASSIUM - SERUM 3.4 mmol/L (3.5-5.1); PROTEIN - SERUM 7.2 g/dL (6.4-8.2); SODIUM 147 mmol/L (136-145); UREA NITROGEN 16 mg/dL (7-18); eGFR NON AFRICAN AMERICAN 62 mL/min (90-120)
[2019-03-20 21:28] LABS: HCG URINE NEGATIVE (NEGATIVE)
[2019-03-20 21:31] LABS: CKMB 0.6 U/L (0.0-3.6); CREATINE KINASE 73 UL (21-215); MAGNESIUM - SERUM 1.7 mg/dL (1.8-2.4); TROPONIN-I < 0.017 ng/mL (0.000-0.060)
[2019-03-20 21:37] LABS: APPEARANCE CLEAR (CLEAR); BILIRUBIN NEGATIVE (NEGATIVE); COLOR YELLOW (YELLOW); GLUCOSE NEGATIVE (NEGATIVE); KETONE NEGATIVE (NEGATIVE); NITRITE NEGATIVE (NEGATIVE); PROTEIN TRACE mg/dL (NEGATIVE); SPECIFIC GRAVITY 1.025 (1.005-1.020); UROBILINOGEN NORMAL (NORMAL)
[2019-03-20 21:38] LABS: BACTERIA MANY /hpf (NONE SEEN); EPITHELIAL CELLS 0-5 /hpf (0-5); HYALINE CAST 0-5 /lpf (NONE SEEN); MUCUS >1+ /lpf (NONE SEEN); WHITE CELLS - URINE 0-5 /hpf (0-5)
[2019-03-20] MEDS ORDERED: KEFLEX500 MG PO (22:08)
[2019-03-20] MEDS ORDERED: NAPROSYN500 MG PO (22:08)
[2019-03-20 23:03] VITALS: BP 138/88
== END 2019-03-20 22:59 | disposition home or self-care (01) ==
LOC: D.ER 19:45
PROVIDERS: Family Medicine
DX: M77.11 Lateral epicondylitis, right elbow (principal); L03.311 Cellulitis of abdominal wall; L03.221 Cellulitis of neck; L03.114 Cellulitis of left upper limb; L03.113 Cellulitis of right upper limb

== ENCOUNTER 2019-04-11 01:30 | Emergency (ER) | payer MEDICAID ==
[~2019-04-11] VITALS: Ht 162.6 cm; Wt 85.9 kg
[~2019-04-11 01:30] MED LIST changes: +APPLE CIDER VINEGAR; +FISH OIL 1,0001 CA1 PO; +KEFLEX500 MG PO; +NAPROSYN500 MG PO
[2019-04-11 01:44] VITALS: Ht 162.6 cm; Wt 85.9 kg
[2019-04-11] MEDS ORDERED: VITAMIN C500 M1 PO (01:47)
[2019-04-11 02:23] LABS: BASOPHILS 0.2 % (0-2); EOSINOPHILS 2.1 % (0-7); HEMATOCRIT 36.9 % (36.0-48.0); IMMATURE GRANULOCYTES 0.2 % (0-5); LYMPHOCYTES 28.2 % (15-50); MCHC 32.5 g/dL (31.0-37.0); MEAN PLATELET VOLUME 10.4 fL (7.4-10.4); MONOCYTES 6.8 % (2-11); NEUTROPHILS 62.5 % (40-80); PLATELET COUNT 246 10x3/uL (130-400); RBC 4.29 10x6/uL (4.00-5.40); RDW 14.3 % (11.5-14.5); WBC 12.4 10x3/uL (4.8-10.8)
[2019-04-11 02:30] LABS: APTT 30.8 SECONDS (22.8-39.4); INR 0.98 (0.85-1.17); PROTIME 12.5 SECONDS (11.6-15.0)
[2019-04-11 02:36] LABS: ALBUMIN 2.8 g/dL (3.4-5.0); ALKALINE PHOSPHATASE 66 U/L (46-116); ALT (SGPT) 21 U/L (10-68); BILIRUBIN - TOTAL 0.32 mg/dL (0.2-1.3); CALC OSMOLALITY 277 mosm/kg (275-300); CARBON DIOXIDE 33.5 mmol/L (21.0-32.0); CHLORIDE - SERUM 104 mmol/L (98-107); CREATININE - SERUM 0.8 mg/dL (0.6-1.3); GLUCOSE 101 mg/dL (74-106); POTASSIUM - SERUM 3.7 mmol/L (3.5-5.1); PROTEIN - SERUM 6.7 g/dL (6.4-8.2); SODIUM 140 mmol/L (136-145); UREA NITROGEN 9 mg/dL (7-18); eGFR NON AFRICAN AMERICAN 80 mL/min (90-120)
[2019-04-11 02:48] LABS: CKMB 0.7 U/L (0.0-3.6); CREATINE KINASE 58 UL (21-215); PRO BNP 110 pg/mL (0-125); TROPONIN-I < 0.017 ng/mL (0.000-0.060)
[2019-04-11] MEDS ORDERED: CARAFATE1 G/10 ML PO (03:49)
[2019-04-11] MEDS ORDERED: PROTONIX40 MG PO (03:49)
[2019-04-11 04:32] VITALS: BP 130/69
== END 2019-04-11 04:32 | disposition home or self-care (01) ==
LOC: D.ER 01:30
PROVIDERS: Family Medicine
DX: K22.2 Esophageal obstruction (principal); K21.9 Gastro-esophageal reflux disease without esophagitis; F17.210 Nicotine dependence, cigarettes, uncomplicated

== ENCOUNTER 2019-06-26 21:29 | Emergency (ER) | payer MEDICAID ==
[~2019-06-26] VITALS: Ht 162.6 cm; Wt 86.8 kg
[~2019-06-26 21:29] MED LIST changes: +CARAFATE1 G/10 ML PO; +VITAMIN C500 M1 PO
[2019-06-26 21:32] VITALS: Ht 162.6 cm; Wt 86.8 kg
[2019-06-26] MEDS ORDERED: TESSALON PERLE100 MG PO (22:38)
[2019-06-26] MEDS ORDERED: GUAIFENESI100 MG/5 M PO (22:38)
[2019-06-26] MEDS ORDERED: DIFLUCAN100 MG PO (22:38)
[2019-06-26 22:58] VITALS: BP 153/85
== END 2019-06-26 22:58 | disposition home or self-care (01) ==
LOC: D.ER 21:29
DX: J32.9 Chronic sinusitis, unspecified (principal); I10 Essential (primary) hypertension; B37.9 Candidiasis, unspecified; Z72.0 Tobacco use